=== PATIENT | male | born 1950 | race Caucasian/White ===

== ENCOUNTER → 2018-04-10 16:56 | Outpatient (CLI) | payer MEDICARE, BC, SELFPAY ==
[2018-04-10 17:21] LABS: Add Manual Diff / Slide Review NO; Basophils Percent Auto 0.7 % (0-2); Eosinophils Percent Auto 3.6 % (2-4); Hematocrit 38.7 % (41-53); Hemoglobin 13.2 g/dL (13.5-17.5); Lymphocytes Percent Auto 24.9 % (25-40); Mean Corpuscular HGB Conc 34.1 % (30-36); Mean Corpuscular Hemoglobin 33.3 PG (26-34); Mean Corpuscular Volume 97.7 fL (80-100); Monocytes Percent Auto 8.5 % (3-14); Neutrophils Absolute Auto 4300 /uL (3000-5900); Neutrophils Percent Auto 62.3 % (50-75); Platelet Count 296 X10^3/uL (150-400); Red Blood Cell Count 3.96 X10^6/uL (4.5-5.9); Red Cell Distribution Width 14.6 % (11.6-14.8); White Blood Cell Count 6.9 X10^3/uL (4.5-11.0)
[2018-04-10 18:12] LABS: Alanine Aminotransferase 28 IU/L (21-72); Albumin 4.1 g/dL (3.5-5.0); Albumin Globulin Ratio 1.6 (1.0-2.8); Alkaline Phosphatase 61 U/L (38-126); Aspartate Aminotransferase 26 IU/L (17-59); BUN Creatinine Ratio 21.1 (6-22); Bilirubin Total 0.4 mg/dL (0.2-1.3); Blood Urea Nitrogen 19 mg/dL (9-20); Calcium 8.8 mg/dL (8.4-10.2); Carbon Dioxide 29 mmol/L (22-32); Chloride 104 mmol/L (98-107); Estimated Glomerular Filt Rate > 60.0 mL/min (>60); Globulin 2.5 g/dL (1.7-4.1); Glucose 133 mg/dL (80-110); HEMOLYSIS < 15 (0-50); Potassium 4.1 mmol/L (3.4-5.1); Sodium 144 mmol/L (137-145); Total Protein 6.6 g/dL (6.3-8.2)
[2018-04-10 18:14] LABS: C-Reactive Protein Quant < 0.5 mg/dL (<1.0)
[2018-04-10 18:19] LABS: Erythrocyte Sedimentation Rate 25 MM/HR (0-15)
== END ==
PROVIDERS: Family Provider Internal Medicine Rheumatology; PCP Internal Medicine; Visit Provider Specialist/Technologist Athletic Trainer
DX: M06.4 Inflammatory polyarthropathy (principal)
CPT/HCPCS: 36415; 80053; 85025; 85651; 86140

== ENCOUNTER → 2018-07-29 11:28 | Outpatient (CLI) | payer MEDICARE, BC, SELFPAY ==
[2018-07-29 11:50] LABS: Add Manual Diff / Slide Review NO; Basophils Absolute Auto 100 /uL (0-100); Basophils Percent Auto 0.7 % (0-2); Eosinophils Absolute Auto 400 /uL (0-450); Eosinophils Percent Auto 5.3 % (2-4); Hematocrit 39.6 % (41-53); Hemoglobin 13.6 g/dL (13.5-17.5); Lymphocytes Absolute Auto 1400 /uL (1100-4500); Lymphocytes Percent Auto 19.9 % (25-40); Mean Corpuscular HGB Conc 34.3 % (30-36); Mean Corpuscular Hemoglobin 32.4 PG (26-34); Mean Corpuscular Volume 94.3 fL (80-100); Monocytes Absolute Auto 800 /uL (0-900); Monocytes Percent Auto 10.5 % (3-14); Neutrophils Absolute Auto 4600 /uL (1500-7000); Neutrophils Percent Auto 63.6 % (50-75); Platelet Count 281 X10^3/uL (150-400); Red Cell Distribution Width 14.3 % (11.6-14.8); White Blood Cell Count 7.3 X10^3/uL (4.5-11.0)
[2018-07-29 12:06] LABS: Erythrocyte Sedimentation Rate 34 MM/HR (0-15)
[2018-07-29 12:39] LABS: Alanine Aminotransferase 37 IU/L (21-72); Albumin 4.1 g/dL (3.5-5.0); Albumin Globulin Ratio 1.6 (1.0-2.8); Alkaline Phosphatase 53 U/L (38-126); Aspartate Aminotransferase 30 IU/L (17-59); BUN Creatinine Ratio 21.3 (6-22); Bilirubin Total 0.4 mg/dL (0.2-1.3); Blood Urea Nitrogen 17 mg/dL (9-20); Calcium 8.9 mg/dL (8.4-10.2); Carbon Dioxide 28 mmol/L (22-32); Chloride 103 mmol/L (98-107); Estimated Glomerular Filt Rate > 60.0 mL/min (>60); Globulin 2.5 g/dL (1.7-4.1); Glucose 90 mg/dL (80-110); HEMOLYSIS < 15 (0-50); Potassium 3.9 mmol/L (3.4-5.1); Sodium 139 mmol/L (137-145); Total Protein 6.6 g/dL (6.3-8.2)
[2018-07-29 12:40] LABS: C-Reactive Protein Quant < 0.5 mg/dL (<1.0)
== END ==
PROVIDERS: Family Provider Internal Medicine; PCP Internal Medicine; Visit Provider Specialist/Technologist Athletic Trainer
DX: M06.4 Inflammatory polyarthropathy (principal)
CPT/HCPCS: 36415; 80053; 85025; 85651; 86140

== ENCOUNTER → 2018-08-26 13:47 | Outpatient (CLI) | payer MEDICARE, BC, SELFPAY ==
--- NOTE | 2018-08-26 | DI.ECHO.S_ITS ---
[facility] +---------+ : : [address] : [address] : : : : [id number] : : : : Phone: [phone]+ Echocardiogram Report + + :Name: CHANTELL LONG Study Date: 08/26/2018 Height: 72 in : :[facility] Exam Location: IS Weight: 265 lb : : Gender: Male BSA: 2.4 m2 : :: 1950 Age: 68 yrs BP: 122/60 mmHg: :Reason For Study: Aortic Stenosis : :Ordering Physician: Dr. Barron : :Willie Performed By: Ana Dawson : :Referring: BASIA MENDOSA : + + Interpretation Summary The left ventricle is normal in size. The ejection fraction is estimated to be 70-75%. There is no echo evidence for significant left ventricular outflow tract obstruction. The right ventricle is normal in size and function. There is mild mitral regurgitation. The aortic valve is not well visualized. The aortic valve is mildly calcified. The peak aortic velocity is 2.6 m/sec. The aortic valve mean gradient is 13 mmHg. The calculated aortic valve area is 1.8 cm2. There is mild aortic stenosis. There is mild aortic regurgitation. The ascending aorta is mildly enlarged. The IVC is of normal diameter and collapses greater than 50% with a sniff. This suggests a low right atrial pressure of 3 mm Hg. Procedure: A two-dimensional transthoracic echocardiogram with color flow and Doppler was performed. The study quality was technically adequate. There is no prior echocardiogram noted for this patient. The patient was in normal sinus rhythm during the exam. The patient had a bundle branch block rhythm during the exam. Left Ventricle: The left ventricle is normal in size. There is mild-moderate concentric left ventricular hypertrophy. Proximal septal thickening is noted. There is no echo evidence for significant left ventricular outflow tract obstruction. There is no thrombus. The ejection fraction is estimated to be 70-75%. There are no focal wall motion abnormalities. Diastolic parameters suggest a relaxation abnormality of the left ventricle, consistent with probable normal filling pressures. Right Ventricle: The right ventricle is normal in size and function. Atria: The left atrium is moderately dilated. The right atrium is mildly dilated. The interatrial septum is intact with no evidence for an atrial septal defect. Mitral Valve: There is mild mitral annular calcification. The mitral valve leaflets are slightly calcified. There is mild mitral regurgitation. Aortic Valve: The aortic valve is mildly calcified. The aortic valve is not well visualized. The calculated aortic valve area is 1.8 cm2. The peak aortic velocity is 2.6 m/sec. The aortic valve mean gradient is 13 mmHg. There is mild aortic stenosis. There is mild aortic regurgitation. Tricuspid Valve: The tricuspid valve is not well visualized, but is grossly normal. Pulmonary artery pressures cannot be estimated because of the lack of a measurable TR jet velocity. There is trace tricuspid regurgitation. Pulmonic Valve: The pulmonic valve is not well seen, but is grossly normal. There is trace pulmonic regurgitation. Great Vessels: The aortic root is normal size. The ascending aorta is mildly enlarged. The IVC is of normal diameter and collapses greater than 50% with a sniff. This suggests a low right atrial pressure of 3 mm Hg. Pericardium/ Pleura There is no pericardial effusion. There is an anterior echo-free space consistent with a fat pad. There is no pleural effusion. MMode/2D Measurements & Calculations LVIDd: 4.9 cm LVOT diam: 2.2 cm LVIDs: 2.7 cm Ao root diam: 3.4 cm FS: 45.0 % asc Aorta Diam: 3.6 cm IVSd: 1.2 cm Ao Arch Diam (Prox Trans): 3.1 cm LVPWd: 1.4 cm LV rojas. diameter/BSA (cm/m^2): 2.1 LV sys. diameter/BSA (cm/m^2): 1.1 LA A2 area: 22.3 cm2 RA long axis: 5.1 cm LA A4 area: 20.2 cm2 RA area: 20.2 cm2 LA length (vol): 5.6 cm RA vol: 67.8 ml LA vol: 68.7 ml RA : 28.2 ml/m2 LA vol index: 28.6 ml/m2 TAPSE: 3.0 cm Doppler Measurements & Calculations Ao V2 max: 258.1 cm/sec LVOT Max Davon: 122.3 cm/sec Ao V2 mean: 174.7 cm/sec LV V1 max P.0 mmHg Ao max P.6 mmHg LV V1 VTI: 25.7 cm Ao mean P.4 mmHg GABBY(I,D): 1.8 cm2 Ao V2 VTI: 52.5 cm GABBY(V,D): 1.8 cm2 sev ratio: 0.49 GABBY indexed to BSA (cm^2/m^2): 0.77 MV E max davon: 67.3 cm/sec PA V2 max: 80.9 cm/sec MV A max davon: 77.3 cm/sec PA V2 mean: 52.6 cm/sec MV E/A: 0.87 PA mean P.3 mmHg Med Peak E' Advon: 6.3 cm/sec PA pr(Accel): 19.1 mmHg E/E' med: 10.7 Lat Peak E' Davon: 6.7 cm/sec E/E' lat: 10.0 E/e' average: 10.3 MV dec time: 0.22 sec SV(LVOT): 97.0 ml Reading Physician:[place]
== END ==
PROVIDERS: Family Provider Internal Medicine; PCP Internal Medicine; Visit Provider Internal Medicine
DX: I08.0 Rheumatic disorders of both mitral and aortic valves (principal)
CPT/HCPCS: 93306

== ENCOUNTER → 2018-09-23 08:52 | Outpatient (CLI) | payer MEDICARE, BC, SELFPAY ==
[2018-09-23 09:32] LABS: Blood Urea Nitrogen 16 mg/dL (9-20); Calcium 8.7 mg/dL (8.4-10.2); Carbon Dioxide 31 mmol/L (22-32); Chloride 102 mmol/L (98-107); Cholesterol 214 mg/dL (140-199); Estimated Glomerular Filt Rate > 60.0 mL/min (>60); Glucose 96 mg/dL (80-110); HDL Cholesterol 44 mg/dL (40-60); HEMOLYSIS < 15 (0-50); LDL Cholesterol Calculated 140 mg/dL (<100); Potassium 3.9 mmol/L (3.4-5.1); Sodium 140 mmol/L (137-145); Triglycerides 148 mg/dL (35-150)
== END ==
PROVIDERS: PCP Internal Medicine; Visit Provider Internal Medicine
DX: I10 Essential (primary) hypertension (principal); E66.9 Obesity, unspecified
CPT/HCPCS: 36415; 80048; 80061

== ENCOUNTER → 2018-10-31 11:37 | Outpatient (CLI) | payer MEDICARE, BC, SELFPAY ==
[2018-10-31 12:10] LABS: Add Manual Diff / Slide Review NO; Basophils Absolute Auto 0 /uL (0-100); Basophils Percent Auto 0.5 % (0-2); Eosinophils Absolute Auto 200 /uL (0-450); Eosinophils Percent Auto 3.3 % (2-4); Hematocrit 38.5 % (41-53); Hemoglobin 13.4 g/dL (13.5-17.5); Lymphocytes Absolute Auto 1500 /uL (1100-4500); Lymphocytes Percent Auto 24.4 % (25-40); Mean Corpuscular HGB Conc 34.9 % (30-36); Mean Corpuscular Hemoglobin 33.1 PG (26-34); Mean Corpuscular Volume 94.8 fL (80-100); Monocytes Absolute Auto 500 /uL (0-900); Monocytes Percent Auto 8.6 % (3-14); Neutrophils Absolute Auto 4000 /uL (1500-7000); Neutrophils Percent Auto 63.2 % (50-75); Platelet Count 246 X10^3/uL (150-400); Red Blood Cell Count 4.05 X10^6/uL (4.5-5.9); Red Cell Distribution Width 14.4 % (11.6-14.8); White Blood Cell Count 6.3 X10^3/uL (4.5-11.0)
[2018-10-31 12:25] LABS: Erythrocyte Sedimentation Rate 16 MM/HR (0-15)
[2018-10-31 13:01] LABS: Alanine Aminotransferase 30 IU/L (21-72); Albumin Globulin Ratio 1.7 (1.0-2.8); Alkaline Phosphatase 54 U/L (38-126); Aspartate Aminotransferase 25 IU/L (17-59); BUN Creatinine Ratio 23.8 (6-22); Bilirubin Total 0.3 mg/dL (0.2-1.3); Blood Urea Nitrogen 19 mg/dL (9-20); C-Reactive Protein Quant < 0.5 mg/dL (<1.0); Calcium 8.8 mg/dL (8.4-10.2); Carbon Dioxide 28 mmol/L (22-32); Chloride 103 mmol/L (98-107); Estimated Glomerular Filt Rate > 60.0 mL/min (>60); Globulin 2.3 g/dL (1.7-4.1); Glucose 117 mg/dL (80-110); HEMOLYSIS < 15 (0-50); Potassium 3.8 mmol/L (3.4-5.1); Sodium 139 mmol/L (137-145); Total Protein 6.3 g/dL (6.3-8.2)
== END ==
PROVIDERS: PCP Internal Medicine; Visit Provider Internal Medicine Rheumatology
DX: L40.50 Arthropathic psoriasis, unspecified (principal)
CPT/HCPCS: 36415; 80053; 85025; 85651; 86140

== ENCOUNTER → 2018-11-27 08:23 | Outpatient (CLI) | payer MEDICARE, BC, SELFPAY ==
[2018-11-27 09:11] LABS: Add Manual Diff / Slide Review NO; Basophils Absolute Auto 100 /uL (0-100); Eosinophils Absolute Auto 200 /uL (0-450); Eosinophils Percent Auto 4.7 % (2-4); Hemoglobin 13.1 g/dL (13.5-17.5); Lymphocytes Absolute Auto 1400 /uL (1100-4500); Lymphocytes Percent Auto 26.8 % (25-40); Mean Corpuscular HGB Conc 34.5 % (30-36); Mean Corpuscular Hemoglobin 33.1 PG (26-34); Monocytes Absolute Auto 400 /uL (0-900); Monocytes Percent Auto 7.3 % (3-14); Neutrophils Absolute Auto 3100 /uL (1500-7000); Neutrophils Percent Auto 60.2 % (50-75); Platelet Count 256 X10^3/uL (150-400); Red Blood Cell Count 3.96 X10^6/uL (4.5-5.9); Red Cell Distribution Width 14.6 % (11.6-14.8); White Blood Cell Count 5.2 X10^3/uL (4.5-11.0)
[2018-11-27 09:32] LABS: Erythrocyte Sedimentation Rate 43 MM/HR (0-15)
[2018-11-27 09:37] LABS: Alanine Aminotransferase 25 IU/L (21-72); Albumin 4.1 g/dL (3.5-5.0); Albumin Globulin Ratio 1.5 (1.0-2.8); Alkaline Phosphatase 54 U/L (38-126); Aspartate Aminotransferase 27 IU/L (17-59); Bilirubin Total 0.8 mg/dL (0.2-1.3); Blood Urea Nitrogen 20 mg/dL (9-20); C-Reactive Protein Quant 0.6 mg/dL (<1.0); Calcium 8.6 mg/dL (8.4-10.2); Carbon Dioxide 30 mmol/L (22-32); Chloride 103 mmol/L (98-107); Estimated Glomerular Filt Rate > 60.0 mL/min (>60); Globulin 2.8 g/dL (1.7-4.1); Glucose 96 mg/dL (80-110); HEMOLYSIS < 15 (0-50); Potassium 3.6 mmol/L (3.4-5.1); Sodium 139 mmol/L (137-145); Total Protein 6.9 g/dL (6.3-8.2)
[2018-11-27 10:50] LABS: Hep C Virus Ab w/Reflex Quant NEGATIVE s/c (NEGATIVE)
== END ==
PROVIDERS: PCP Internal Medicine; Visit Provider Internal Medicine Rheumatology
DX: Z00.00 Encounter for general adult medical examination without abnormal findings (principal); L40.50 Arthropathic psoriasis, unspecified
CPT/HCPCS: 36415; 80053; 85025; 85651; 86140; 86803

== ENCOUNTER → 2019-03-05 08:13 | Outpatient (CLI) | payer MEDICARE, BC, SELFPAY ==
[2019-03-05 09:19] LABS: Add Manual Diff / Slide Review NO; Basophils Absolute Auto 0 /uL (0-100); Basophils Percent Auto 0.7 % (0-2); Eosinophils Absolute Auto 300 /uL (0-450); Eosinophils Percent Auto 6.8 % (2-4); Hemoglobin 13.2 g/dL (13.5-17.5); Lymphocytes Absolute Auto 1200 /uL (1100-4500); Lymphocytes Percent Auto 23.9 % (25-40); Mean Corpuscular HGB Conc 34.8 % (30-36); Mean Corpuscular Hemoglobin 33.6 PG (26-34); Mean Corpuscular Volume 96.4 fL (80-100); Monocytes Absolute Auto 300 /uL (0-900); Monocytes Percent Auto 6.3 % (3-14); Neutrophils Absolute Auto 3100 /uL (1500-7000); Neutrophils Percent Auto 62.3 % (50-75); Platelet Count 255 X10^3/uL (150-400); Red Blood Cell Count 3.94 X10^6/uL (4.5-5.9); Red Cell Distribution Width 14.5 % (11.6-14.8)
[2019-03-05 09:50] LABS: Alanine Aminotransferase 30 IU/L (21-72); Albumin Globulin Ratio 1.6 (1.0-2.8); Alkaline Phosphatase 55 U/L (38-126); Aspartate Aminotransferase 32 IU/L (17-59); BUN Creatinine Ratio 23.8 (6-22); Bilirubin Total 0.7 mg/dL (0.2-1.3); Blood Urea Nitrogen 19 mg/dL (9-20); Carbon Dioxide 30 mmol/L (22-32); Chloride 102 mmol/L (98-107); Estimated Glomerular Filt Rate > 60.0 mL/min (>60); Globulin 2.5 g/dL (1.7-4.1); Glucose 92 mg/dL (80-110); HEMOLYSIS < 15 (0-50); Potassium 3.9 mmol/L (3.4-5.1); Sodium 141 mmol/L (137-145); Total Protein 6.5 g/dL (6.3-8.2)
[2019-03-05 10:03] LABS: C-Reactive Protein Quant < 0.5 mg/dL (<1.0)
[2019-03-05 10:04] LABS: Erythrocyte Sedimentation Rate 23 MM/HR (0-15)
== END ==
PROVIDERS: PCP Internal Medicine; Visit Provider Internal Medicine Rheumatology
DX: L40.50 Arthropathic psoriasis, unspecified (principal)
CPT/HCPCS: 36415; 80053; 85025; 85651; 86140

== ENCOUNTER → 2019-06-01 11:30 | Outpatient (CLI) | payer MEDICARE, BC, SELFPAY ==
[2019-06-01 12:27] LABS: Add Manual Diff / Slide Review NO; Basophils Absolute Auto 0 /uL (0-100); Basophils Percent Auto 0.9 % (0-2); Eosinophils Absolute Auto 300 /uL (0-450); Eosinophils Percent Auto 4.7 % (2-4); Hematocrit 37.1 % (41-53); Hemoglobin 12.7 g/dL (13.5-17.5); Lymphocytes Absolute Auto 900 /uL (1100-4500); Lymphocytes Percent Auto 17.1 % (25-40); Mean Corpuscular HGB Conc 34.3 % (30-36); Mean Corpuscular Hemoglobin 33.7 PG (26-34); Mean Corpuscular Volume 98.2 fL (80-100); Monocytes Absolute Auto 700 /uL (0-900); Monocytes Percent Auto 12.5 % (3-14); Neutrophils Absolute Auto 3600 /uL (1500-7000); Neutrophils Percent Auto 64.8 % (50-75); Platelet Count 236 X10^3/uL (150-400); Red Blood Cell Count 3.78 X10^6/uL (4.5-5.9); Red Cell Distribution Width 14.4 % (11.6-14.8); White Blood Cell Count 5.6 X10^3/uL (4.5-11.0)
[2019-06-01 12:34] LABS: Erythrocyte Sedimentation Rate 23 MM/HR (0-15)
[2019-06-01 12:42] LABS: Alanine Aminotransferase 20 IU/L (<50); Albumin 4.1 g/dL (3.5-5.0); Albumin Globulin Ratio 1.8 (1.0-2.8); Alkaline Phosphatase 52 U/L (38-126); Aspartate Aminotransferase 24 IU/L (17-59); Bilirubin Total 0.5 mg/dL (0.2-1.3); Blood Urea Nitrogen 18 mg/dL (9-20); C-Reactive Protein Quant 0.5 mg/dL (<1.0); Calcium 9.2 mg/dL (8.4-10.2); Carbon Dioxide 31 mmol/L (22-32); Chloride 102 mmol/L (98-107); Estimated Glomerular Filt Rate > 60.0 mL/min (>60); Globulin 2.3 g/dL (1.7-4.1); Glucose 116 mg/dL (80-110); HEMOLYSIS < 15 (0-50); Potassium 4.1 mmol/L (3.4-5.1); Sodium 141 mmol/L (137-145); Total Protein 6.4 g/dL (6.3-8.2)
== END ==
PROVIDERS: Family Provider Internal Medicine; PCP Internal Medicine; Visit Provider Internal Medicine Rheumatology
DX: L40.50 Arthropathic psoriasis, unspecified (principal); I10 Essential (primary) hypertension
CPT/HCPCS: 36415; 80053; 85025; 85651; 86140

== ENCOUNTER → 2019-06-16 15:51 | Outpatient (CLI) | payer MEDICARE, BC, SELFPAY ==
--- NOTE | 2019-06-16 | DI.MRI.S_ITS ---
PROCEDURE: MR ANGIO ABDOMEN WO/W CON INDICATIONS: Essential (primary) hypertension TECHNIQUE: Precontrast axial and coronal TruFISP through the abdomen. Dynamic coronal MRA using Care Bolus timing during the administration of contrast. Post-contrast axial VIBE through the kidneys. 3-dimensional maximum intensity projection (MIP) reformats constructed. COMPARISON: None. FINDINGS: Image quality: Excellent. Renal arteries: Single bilateral renal arteries are present, which are widely patent. Abdominal aorta: Aorta is normal in caliber, and is patent. Mesenteric arteries: Celiac trunk, superior and inferior mesenteric arteries are widely patent. Extravascular soft tissues: Visualized solid organs appear normal in size on limited pre-contrast images. No retroperitoneal or mesenteric adenopathy by size criteria. Bowel loops are normal in caliber. No free fluid. No ventral hernias. Bones: Marrow demonstrates normal overall signal. IMPRESSION: 1. No evidence of renal, nor mesenteric artery stenosis. Dictated by: Armando Lee M.D. on 06/17/2019 at 8:37 Approved by: Armando Lee M.D. on 06/17/2019 at 8:39
== END ==
PROVIDERS: PCP Internal Medicine; Visit Provider Internal Medicine
DX: I70.1 Atherosclerosis of renal artery (principal); I10 Essential (primary) hypertension
CPT/HCPCS: C8902; A9579

== ENCOUNTER → 2019-09-11 17:26 | Outpatient (CLI) | payer MEDICARE, BC, SELFPAY ==
[2019-09-11 19:07] LABS: BUN Creatinine Ratio 27.1 (6-22); Blood Urea Nitrogen 32 mg/dL (9-20); Carbon Dioxide 31 mmol/L (22-32); Chloride 101 mmol/L (98-107); Estimated Glomerular Filt Rate > 60.0 mL/min (>60); Glucose 111 mg/dL (80-110); HEMOLYSIS 17 (0-50); Potassium 3.8 mmol/L (3.4-5.1); Sodium 138 mmol/L (137-145)
[2019-09-16 09:00] LABS: Aldosterone/Renin Activity Rat >22.2 (0.0-30.0); Plama Renin, LC/MS/MS <0.167 ng/mL/hr (0.167-5.380)
== END ==
PROVIDERS: PCP Internal Medicine; Referring Provider Internal Medicine; Visit Provider Internal Medicine
DX: I10 Essential (primary) hypertension (principal)
CPT/HCPCS: 36415; 80048; 82088; 84244

== ENCOUNTER → 2019-10-08 10:24 | Outpatient (CLI) | payer MEDICARE, BC, SELFPAY ==
[2019-10-08 11:27] LABS: BUN Creatinine Ratio 24.6 (6-22); Blood Urea Nitrogen 35 mg/dL (9-20); Calcium 9.1 mg/dL (8.4-10.2); Carbon Dioxide 28 mmol/L (22-32); Chloride 102 mmol/L (98-107); Estimated Glomerular Filt Rate 49.6 mL/min (>60); Glucose 106 mg/dL (80-110); HEMOLYSIS < 15 (0-50); Potassium 3.5 mmol/L (3.4-5.1); Sodium 139 mmol/L (137-145)
== END ==
PROVIDERS: PCP Internal Medicine; Referring Provider Internal Medicine; Visit Provider Internal Medicine
DX: I10 Essential (primary) hypertension (principal)
CPT/HCPCS: 36415; 80048

== ENCOUNTER → 2019-11-04 16:10 | Outpatient (CLI) | payer MEDICARE, BC, SELFPAY ==
[2019-11-04 17:16] LABS: BUN Creatinine Ratio 24.5 (6-22); Blood Urea Nitrogen 36 mg/dL (9-20); Calcium 8.9 mg/dL (8.4-10.2); Carbon Dioxide 29 mmol/L (22-32); Chloride 99 mmol/L (98-107); Estimated Glomerular Filt Rate 47.6 mL/min (>60); Glucose 96 mg/dL (80-110); HEMOLYSIS < 15 (0-50); Potassium 3.4 mmol/L (3.4-5.1); Sodium 137 mmol/L (137-145)
== END ==
PROVIDERS: PCP Internal Medicine; Referring Provider Internal Medicine; Visit Provider Internal Medicine
DX: I10 Essential (primary) hypertension (principal)
CPT/HCPCS: 36415; 80048

== ENCOUNTER → 2019-11-16 09:22 | Outpatient (CLI) | payer MEDICARE, BC, SELFPAY ==
[2019-11-16 11:14] LABS: Alanine Aminotransferase 18 IU/L (<50); Albumin 4.1 g/dL (3.5-5.0); Albumin Globulin Ratio 1.4 (1.0-2.8); Alkaline Phosphatase 49 U/L (38-126); Aspartate Aminotransferase 29 IU/L (17-59); BUN Creatinine Ratio 20.1 (6-22); Bilirubin Total 0.4 mg/dL (0.2-1.3); Blood Urea Nitrogen 29 mg/dL (9-20); Calcium 9.5 mg/dL (8.4-10.2); Carbon Dioxide 29 mmol/L (22-32); Chloride 102 mmol/L (98-107); Estimated Glomerular Filt Rate 48.8 mL/min (>60); Globulin 2.9 g/dL (1.7-4.1); Glucose 120 mg/dL (80-110); HEMOLYSIS < 15 (0-50); Potassium 3.4 mmol/L (3.4-5.1); Sodium 140 mmol/L (137-145)
[2019-11-16 11:15] LABS: C-Reactive Protein Quant < 0.5 mg/dL (<1.0)
[2019-11-16 11:51] LABS: Erythrocyte Sedimentation Rate 45 MM/HR (0-15)
== END ==
PROVIDERS: PCP Internal Medicine; Referring Provider Internal Medicine Rheumatology; Visit Provider Internal Medicine Rheumatology
DX: L40.50 Arthropathic psoriasis, unspecified (principal)
CPT/HCPCS: 36415; 80053; 85651; 86140

== ENCOUNTER → 2019-11-24 10:52 | Outpatient (CLI) | payer MEDICARE, BC, SELFPAY ==
[2019-11-24 12:13] LABS: Add Manual Diff / Slide Review NO; Basophils Absolute Auto 0 /uL (0-100); Basophils Percent Auto 0.6 % (0-2); Eosinophils Absolute Auto 400 /uL (0-450); Eosinophils Percent Auto 7.1 % (2-4); Hematocrit 31.4 % (41-53); Hemoglobin 11.1 g/dL (13.5-17.5); Lymphocytes Absolute Auto 1000 /uL (1100-4500); Lymphocytes Percent Auto 16.4 % (25-40); Mean Corpuscular HGB Conc 35.3 % (30-36); Mean Corpuscular Hemoglobin 34.4 PG (26-34); Mean Corpuscular Volume 97.4 fL (80-100); Monocytes Absolute Auto 600 /uL (0-900); Monocytes Percent Auto 9.8 % (3-14); Neutrophils Absolute Auto 4000 /uL (1500-7000); Neutrophils Percent Auto 66.1 % (50-75); Platelet Count 211 X10^3/uL (150-400); Red Blood Cell Count 3.22 X10^6/uL (4.5-5.9); Red Cell Distribution Width 14.6 % (11.6-14.8)
== END ==
PROVIDERS: PCP Internal Medicine; Referring Provider Internal Medicine Rheumatology; Visit Provider Internal Medicine Rheumatology
DX: L40.50 Arthropathic psoriasis, unspecified (principal)
CPT/HCPCS: 36415; 85025

== ENCOUNTER → 2019-12-02 10:38 | Outpatient (CLI) | payer MEDICARE, BC, SELFPAY ==
[2019-12-02 13:22] LABS: Ferritin 131 ng/mL (18-464)
[2019-12-02 13:26] LABS: HEMOLYSIS < 15 (0-50); Iron 152 ug/dL (49-181)
[2019-12-02 13:38] LABS: Percent Iron Saturation 58 % (20-50); Total Iron Binding Capacity 260 ug/dL (261-462); Transferrin 187 mg/dL (206-381)
== END ==
PROVIDERS: PCP Internal Medicine; Referring Provider Internal Medicine; Visit Provider Internal Medicine
DX: D64.9 Anemia, unspecified (principal)
CPT/HCPCS: 36415; 82728; 83540; 83550

== ENCOUNTER → 2019-12-08 17:32 | Outpatient (CLI) | payer MEDICARE, BC, SELFPAY ==
[2019-12-08 18:12] LABS: BUN Creatinine Ratio 25.3 (6-22); Blood Urea Nitrogen 41 mg/dL (9-20); Carbon Dioxide 28 mmol/L (22-32); Chloride 102 mmol/L (98-107); Estimated Glomerular Filt Rate 42.6 mL/min (>60); Glucose 162 mg/dL (80-110); HEMOLYSIS < 15 (0-50); Potassium 3.9 mmol/L (3.4-5.1); Sodium 138 mmol/L (137-145)
== END ==
PROVIDERS: PCP Internal Medicine; Referring Provider Internal Medicine; Visit Provider Internal Medicine
DX: I10 Essential (primary) hypertension (principal)
CPT/HCPCS: 36415; 80048

== ENCOUNTER → 2019-12-10 16:00 | Outpatient (CLI) | payer MEDICARE, BC, SELFPAY ==
[2019-12-10 16:22] LABS: Add Manual Diff / Slide Review NO; Basophils Absolute Auto 100 /uL (0-100); Basophils Percent Auto 0.8 % (0-2); Eosinophils Absolute Auto 400 /uL (0-450); Eosinophils Percent Auto 6.2 % (2-4); Hematocrit 30.3 % (41-53); Hemoglobin 10.8 g/dL (13.5-17.5); Lymphocytes Absolute Auto 1500 /uL (1100-4500); Lymphocytes Percent Auto 25.1 % (25-40); Mean Corpuscular HGB Conc 35.5 % (30-36); Mean Corpuscular Hemoglobin 34.7 PG (26-34); Mean Corpuscular Volume 97.7 fL (80-100); Monocytes Absolute Auto 300 /uL (0-900); Monocytes Percent Auto 5.3 % (3-14); Neutrophils Absolute Auto 3800 /uL (1500-7000); Neutrophils Percent Auto 62.6 % (50-75); Platelet Count 257 X10^3/uL (150-400); Red Cell Distribution Width 14.5 % (11.6-14.8)
[2019-12-10 18:12] LABS: Creatinine Urine Random 94.5 mg/dL
[2019-12-10 18:24] LABS: Microalbumi Creatinin Ratio Ur 6.3 ug/mg CR (<30); Microalbumin Urine Random < 0.6 mg/dL (0-1.6)
== END ==
PROVIDERS: PCP Internal Medicine; Referring Provider Internal Medicine; Visit Provider Internal Medicine
DX: N18.9 Chronic kidney disease, unspecified (principal); D64.9 Anemia, unspecified
CPT/HCPCS: 36415; 82043; 82570; 85025

== ENCOUNTER → 2020-01-04 15:23 | Outpatient (CLI) | payer MEDICARE, BC, SELFPAY ==
[2020-01-04 16:18] LABS: Add Manual Diff / Slide Review NO; Basophils Absolute Auto 100 /uL (0-100); Basophils Percent Auto 0.7 % (0-2); Eosinophils Absolute Auto 400 /uL (0-450); Eosinophils Percent Auto 4.9 % (2-4); Hematocrit 30.3 % (41-53); Hemoglobin 10.5 g/dL (13.5-17.5); Lymphocytes Absolute Auto 1100 /uL (1100-4500); Lymphocytes Percent Auto 14.5 % (25-40); Mean Corpuscular HGB Conc 34.9 % (30-36); Mean Corpuscular Hemoglobin 34.9 PG (26-34); Mean Corpuscular Volume 100.3 fL (80-100); Monocytes Absolute Auto 1100 /uL (0-900); Monocytes Percent Auto 13.8 % (3-14); Neutrophils Absolute Auto 5100 /uL (1500-7000); Neutrophils Percent Auto 66.1 % (50-75); Platelet Count 230 X10^3/uL (150-400); Red Blood Cell Count 3.02 X10^6/uL (4.5-5.9); Red Cell Distribution Width 14.9 % (11.6-14.8); White Blood Cell Count 7.8 X10^3/uL (4.5-11.0)
[2020-01-04 16:30] LABS: BUN Creatinine Ratio 19.4 (6-22); Blood Urea Nitrogen 21 mg/dL (9-20); Calcium 8.9 mg/dL (8.4-10.2); Carbon Dioxide 30 mmol/L (22-32); Chloride 104 mmol/L (98-107); Estimated Glomerular Filt Rate > 60.0 mL/min (>60); Glucose 106 mg/dL (80-110); HEMOLYSIS < 15 (0-50); Potassium 3.7 mmol/L (3.4-5.1); Sodium 138 mmol/L (137-145)
== END ==
PROVIDERS: PCP Internal Medicine; Referring Provider Internal Medicine; Visit Provider Internal Medicine
DX: I10 Essential (primary) hypertension (principal); N18.9 Chronic kidney disease, unspecified; D64.9 Anemia, unspecified
CPT/HCPCS: 36415; 80048; 85025

== ENCOUNTER → 2020-01-05 10:35 | Outpatient (CLI) | payer MEDICARE, BC, SELFPAY ==
--- NOTE | 2020-01-05 | DI.US.S_ITS ---
PROCEDURE: US RENAL COMPLETE INDICATIONS: ACUTE KIDNEY FAILURE TECHNIQUE: Real-time scanning was performed of the kidneys and bladder, with image documentation. COMPARISON: [facility], MR, MR ANGIO ABDOMEN WO/W CON, 06/16/2019, 16:28. FINDINGS: Kidneys: Kidneys are normal in size. Right kidney measures 13.2 cm long; left kidney measures 14 cm long. Right renal cortical thickness is 2.1 cm; left renal cortical thickness is 1.4 cm. Renal cortical echotexture is normal. No hydronephrosis or nephrolithiasis. No suspicious solid mass lesions. Multiple renal cysts present bilaterally. Bladder: Pre-void bladder volume is 221 mL. Post-void residual is 8 mL. Pre-void images demonstrate no intraluminal masses or stones. On pre-void images, bilateral ureteral jets are noted with color Doppler interrogation. (Of note, ureteral jets may not be detectable in up to 25% of cases due to insufficient differences in specific gravity between ureteral and bladder urine). Miscellaneous: No free pelvic fluid. IMPRESSION: 1. Bilateral renal cysts; otherwise normal appearance the kidneys. Dictated by: Jose Mckenzie [facility] Interpreted: Brandon Sow MD on 01/05/2020 at 11:37 Approved by: Brandon Sow M.D. on 01/05/2020 at 12:45
== END ==
PROVIDERS: PCP Internal Medicine; Referring Provider Student in an Organized Health Care Education/Training Program; Visit Provider Student in an Organized Health Care Education/Training Program
DX: N17.9 Acute kidney failure, unspecified (principal); N28.1 Cyst of kidney, acquired
CPT/HCPCS: 76770

== ENCOUNTER → 2020-02-09 10:14 | Outpatient (CLI) | payer MEDICARE, BC, SELFPAY ==
[2020-02-09 10:36] LABS: RBC Urine None Seen (0-5/HPF)
[2020-02-09 12:01] LABS: Hematocrit 34.5 % (41-53); Mean Corpuscular HGB Conc 34.7 % (30-36); Mean Corpuscular Hemoglobin 34.2 PG (26-34); Mean Corpuscular Volume 98.5 fL (80-100); Platelet Count 238 X10^3/uL (150-400); Red Blood Cell Count 3.51 X10^6/uL (4.5-5.9); White Blood Cell Count 6.4 X10^3/uL (4.5-11.0)
[2020-02-09 12:45] LABS: Blood Urea Nitrogen 18 mg/dL (9-20); Calcium 9.1 mg/dL (8.4-10.2); Carbon Dioxide 28 mmol/L (22-32); Chloride 104 mmol/L (98-107); Estimated Glomerular Filt Rate > 60.0 mL/min (>60); Glucose 115 mg/dL (80-110); HEMOLYSIS < 15 (0-50); Potassium 3.8 mmol/L (3.4-5.1); Sodium 139 mmol/L (137-145)
[2020-02-09 13:39] LABS: Appearance Urine UA CLEAR; Bilirubin Urine UA NEGATIVE (NEGATIVE); Color Urine UA YELLOW; Glucose Urine UA NEGATIVE (Negative); Ketones Urine UA NEGATIVE (NEGATIVE); Leukocyte Esterase Urine UA NEGATIVE (NEGATIVE); Nitrite Urine UA NEGATIVE (Negative); Occult Blood Urine UA NEGATIVE (Negative); Protein Urine UA NEGATIVE (Negative); Specific Gravity Urine UA 1.015 (1.000-1.035); Urobilinogen Urine UA 0.2 E.U./dL (0.2)
[2020-02-09 14:25] LABS: Bacteria Urine Occasional (0-1); Culture Indicated Urine Cult Not Indicated; Mucus Urine 1+ (Negative); Squamous Epithelial Cell Urine 0-1 /HPF (0-5/HPF); WBC Urine 0-1/HPF (0-5/HPF)
[2020-02-09 15:21] LABS: Protein (Total) Urine Random 13 mg/dL (0-12); Protein Creatinine Ratio Urine 0.06 GRAM/24H
[2020-02-10 07:12] LABS: Parathyroid Hormone Int 43 pg/mL (15-65)
== END ==
PROVIDERS: PCP Internal Medicine; Referring Provider Internal Medicine; Visit Provider Internal Medicine
DX: N05.9 Unspecified nephritic syndrome with unspecified morphologic changes (principal); D70.9 Neutropenia, unspecified; D63.1 Anemia in chronic kidney disease; N25.81 Secondary hyperparathyroidism of renal origin; N30.00 Acute cystitis without hematuria; R80.9 Proteinuria, unspecified
CPT/HCPCS: 36415; 80048; 81001; 82570; 83970; 84156; 85027

== ENCOUNTER → 2020-06-28 13:18 | Outpatient (CLI) | payer MEDICARE, BC, SELFPAY ==
[2020-06-28 14:25] LABS: Add Manual Diff / Slide Review NO; Basophils Absolute Auto 100 /uL (0-100); Basophils Percent Auto 0.8 % (0-2); Eosinophils Absolute Auto 300 /uL (0-450); Eosinophils Percent Auto 4.9 % (2-4); Hematocrit 37.7 % (41-53); Hemoglobin 12.6 g/dL (13.5-17.5); Lymphocytes Absolute Auto 1100 /uL (1100-4500); Mean Corpuscular HGB Conc 33.5 % (30-36); Mean Corpuscular Hemoglobin 33.1 PG (26-34); Mean Corpuscular Volume 98.7 fL (80-100); Monocytes Absolute Auto 600 /uL (0-900); Monocytes Percent Auto 9.3 % (3-14); Neutrophils Absolute Auto 4200 /uL (1500-7000); Platelet Count 261 X10^3/uL (150-400); Red Blood Cell Count 3.83 X10^6/uL (4.5-5.9); Red Cell Distribution Width 14.5 % (11.6-14.8); White Blood Cell Count 6.2 X10^3/uL (4.5-11.0)
[2020-06-28 14:29] LABS: Add Manual Diff / Slide Review NO; Basophils Percent Auto 0.8 % (0-2); Eosinophils Percent Auto 4.9 % (2-4); Hematocrit 37.7 % (41-53); Hemoglobin 12.6 g/dL (13.5-17.5); Mean Corpuscular HGB Conc 33.5 % (30-36); Mean Corpuscular Hemoglobin 33.1 PG (26-34); Mean Corpuscular Volume 98.7 fL (80-100); Monocytes Percent Auto 9.3 % (3-14); Platelet Count 261 X10^3/uL (150-400); Red Blood Cell Count 3.83 X10^6/uL (4.5-5.9); Red Cell Distribution Width 14.5 % (11.6-14.8); White Blood Cell Count 6.2 X10^3/uL (4.5-11.0)
[2020-06-28 14:30] LABS: Basophils Absolute Auto 100 /uL (0-100); Eosinophils Absolute Auto 300 /uL (0-450); Lymphocytes Absolute Auto 1100 /uL (1100-4500); Monocytes Absolute Auto 600 /uL (0-900); Neutrophils Absolute Auto 4200 /uL (1500-7000)
[2020-06-28 14:43] LABS: Erythrocyte Sedimentation Rate 29 MM/HR (0-15)
[2020-06-28 15:00] LABS: Hemoglobin A1C% w Est Avg Glu 5.1 % (4.0-6.0)
[2020-06-28 15:02] LABS: Alanine Aminotransferase 20 IU/L (<50); Albumin Globulin Ratio 1.5 (1.0-2.8); Alkaline Phosphatase 51 U/L (38-126); Aspartate Aminotransferase 27 IU/L (17-59); BUN Creatinine Ratio 24.1 (6-22); Bilirubin Total 0.4 mg/dL (0.2-1.3); Blood Urea Nitrogen 27 mg/dL (9-20); Calcium 9.2 mg/dL (8.4-10.2); Carbon Dioxide 30 mmol/L (22-32); Chloride 103 mmol/L (98-107); Estimated Glomerular Filt Rate > 60.0 mL/min (>60); Globulin 2.7 g/dL (1.7-4.1); Glucose 119 mg/dL (80-110); HEMOLYSIS < 15 (0-50); Sodium 138 mmol/L (137-145); Total Protein 6.7 g/dL (6.3-8.2)
[2020-06-28 15:10] LABS: C-Reactive Protein Quant < 0.5 mg/dL (<1.0)
== END ==
PROVIDERS: Internal Medicine Rheumatology; PCP Internal Medicine; Referring Provider Orthopaedic Surgery Adult Reconstructive Orthopaedic Surgery; Visit Provider Orthopaedic Surgery Adult Reconstructive Orthopaedic Surgery
DX: Z01.818 Encounter for other preprocedural examination (principal); R73.9 Hyperglycemia, unspecified; N18.9 Chronic kidney disease, unspecified; Z01.812 Encounter for preprocedural laboratory examination
CPT/HCPCS: 36415; 80053; 83036; 84153; 85025; 85651; 86140; 93005

== ENCOUNTER → 2020-08-15 11:33 | Outpatient (CLI) | payer MEDICARE, BC, SELFPAY ==
[2020-08-15 13:15] LABS: COVID19 -Nasal RAPID Negative (Negative)
== END ==
PROVIDERS: PCP Internal Medicine; Visit Provider Nurse Practitioner
DX: Z20.822 Contact with and (suspected) exposure to COVID-19 (principal); Z01.812 Encounter for preprocedural laboratory examination
CPT/HCPCS: 87635; C9803

== ENCOUNTER 2020-08-17 10:24 | Day surgery (SDC) | payer MEDICARE, BC, SELFPAY ==
[2020-08-17] VITALS (13 sets, daily range): BP systolic 124–145; BP diastolic 63–81; PULSE 60–89; RESP 12–18; TEMP 36.4–36.9; O2SAT 93–98; BMI 33.9
--- NOTE | 2020-08-17 06:00 | DI.RAD.S_ITS ---
PROCEDURE: XR KNEE LT 1TO2V INDICATIONS: TKA TECHNIQUE: 2 views of the knee were acquired. COMPARISON: [facility], [place], XR KNEE 4+ VIEWS LEFT, 06/21/2020, 14:40. FINDINGS: Bones: No fractures or dislocations. No suspicious bony lesions. Stable appearance of knee arthroplasty. Hardware is intact without evidence of periprosthetic loosening or hardware fracture. Soft tissues: No joint effusion. No suspicious soft tissue calcifications. IMPRESSION: Stable appearance of knee arthroplasty. Dictated by: Dolores Julio M.D. on 08/17/2020 at 16:04 Approved by: Dolores Julio M.D. on 08/17/2020 at 16:05
[2020-08-17] MEDS: ACETAMINOPHEN 325 MG TABLET 975 MG PO (10:50)
[2020-08-17] MEDS: PREGABALIN 75 MG CAPSULE PO (10:50)
[2020-08-17] MEDS: CELECOXIB 200 MG CAPSULE PO (10:51)
[2020-08-17] MEDS: LACTATED RINGERS 1,000 ML 42 ML IV (10:57)
--- NOTE | 2020-08-17 11:19 | PM.PREOP ---
Pre-operative Note COVID-19 COVID-19 status: Negative Result date/Date tested (Pos, Neg/Pending): 08/15/20 Interval Note History & Physical reviewed/Exam performed by Physician: Yes Changes to H&P: Yes H&P completed within 30 days and has changed as indicated here:: H&P incorrectly states that he is therefore a right total knee arthroplasty this is incorrect. Patient is status post right total knee arthroplasty. He is here for a left total knee arthroplasty he has been booked for left total knee arthroplasty the H&P states it incorrectly. Plan for left total knee arthroplasty.
[2020-08-17] MEDS: CEFAZOLIN 2 GM/100 ML FROZ.PIGGY IV ×2 (11:25→20:37)
--- NOTE | 2020-08-17 12:00 | SUR.OPER ---
Supine on padded OR bed. Pillow under head, arms secured on padded armboards <90 degree abduction. Safety belt across torso. Non-operative leg secured with tape over blanket over lower leg. Hip process controls technician and Dr. Solorzano's knee positioner on operative side. Operative leg under control of surgeon.
[2020-08-17] MEDS: TRANEXAMIC ACID 1,000 MG VIAL 2000 MG INJ ×2 (12:11→13:14)
[2020-08-17] MEDS: KETOROLAC 30 MG/ML VIAL IV (12:12)
[2020-08-17] MEDS: ROPIVACAINE 0.5% PF 5 MG/ML 20ML VIAL 60 ML INJ (12:13)
[2020-08-17] MEDS: MORPHINE 4 MG/ML INJ INJ (12:13)
[2020-08-17] MEDS: SODIUM CHLORIDE IRRIG SOLUTION 250 ML, POVIDONE-IODINE SPONGE STICKS 1 APPLIC IRR (12:14)
--- NOTE | 2020-08-17 13:44 | PM.OP.1 ---
Operative Date/Time/Diagnoses Date of procedure: 08/17/20 Time of procedure: 13:44 Pre-op diagnosis: left knee OA Post-op diagnosis: same Procedure & Clinicians Procedure: Left TKA Same procedure as scheduled: Yes Indications: Left knee osteoarthritis resistant to further conservative measures Surgeon: Danilo Solorzano Billing Collections Specialist: Bebeto Newsome Anesthesia Type: General and Spinal Operative Notes Findings: Left knee osteoarthritis with varus malalignment. Closure Type: primary Prosthetic devices, grafts, tissues, transplants, or devices: Jhaveri and nephew size 6 left CR femoral component Size 6 left Journey tibial base plate Size 5-6 left 9 mm thick deep dish polyethylene 35 mm oval Vickie 2 patellar button Estimated Blood Loss (mL): 100 Tourniquet time (min): 60 Procedure in detail: Patient was met in the preoperative holding area where the site and side of surgery were marked by . Informed consent had been reviewed and signed in clinic however was also reviewed the preoperative holding area and all last minute questions were answered. Patient was brought then brought back in the operating room where he received a spinal anesthetic. He was induced under general anesthesia the left thigh had a nonsterile tourniquet placed and the left lower extremity then prepped and draped in normal sterile fashion. Surgical time-out was performed verifying site and side of surgery as well as the name of the patient. The left lower extremity was exsanguinated using Esmarch and the tourniquet was inflated 250 mm of mercury. A longitudinal incision over the anterior aspect of the knee was made with a 10. Blade. A new 10. Blade was then used to elevate medial lateral flaps. Medial parapatellar arthrotomy was then marked and performed. Hoffa's fat pad was removed and a medial peel was then performed. The ACL remnant was then removed Pascoag's line was marked and the lateral meniscus was also removed. Our starting point for our intramedullary guide was also marked on the femur and tibia. The drill was then used into the femoral canal and tibial canal respectively. The intramedullary guide for the femur was placed and pinned in the neutral slot after the initial cut 2 more mm of distal femur were then taken. We then turned our attention to the tibial side intramedullary tess was placed inside the tibia and a cut was made just deep enough to get underneath the sclerotic bone on the medial plateau. The jig was pinned in place and verified with a drop tess. Bony fragments were then removed and the medial meniscus was also removed. At this point the knee was brought into full extension and a 9 mm block fit in the extension gap and brought the knee out to full extension. There is no varus valgus laxity. Knee was then brought back into flexion gap physician obstetrician was used and compared to Philipp line something seemed off about the mendoza for the gap physician obstetrician so the traditional Sizer was used and compared to Whitesides line and was marked at about 4?. This was then marked and was noted that our flexion gap would be tight. The block was then anteriorized 2 mm. Femur was sized to a size 7 however due to anterior rising we dropped down to a size 6 5 in 1 block. This was pinned in place and all the cuts were then sequentially made. Trial components were then placed and the knee was brought through range of motion. Patient was able to achieve full extension with good varus valgus stability and had good stability range of motion through mid flexion flexion range of motion. Tibial tray external rotation was marked using a floating technique. The patella was then freehand cut and sized to size 35 mm button. This was then drilled for and a 35 mm patellar button was then placed and the knee was brought through range of motion there is no patellar tilt or lift-off. Trial components were then removed from the knee. The tibial tray was then placed in marked external rotation as compared to our marked lines. This was then drilled and the keel punch was then performed. Take your anesthetic injection was then performed. Pulse lavage was then used to thoroughly irrigate all cut surfaces of the bone. The bone was then dried. Cement was then finger packed into the keel hole as well as on the tibial cut surface. Some was also placed on the undersurface of the tibial base plate. This was then malleted into place and all excess cement was removed. Cement was then finger packed onto the cut surface of the femur with exception of the posterior condyle cut. Cement was placed on the feet of the femoral component this was then malleted into place and illicit excess cement was removed. A 9 mm thick trial was then placed the knee was brought into full extension the ankle held in internal rotation. Betadine solution was then placed in the wound allowed to sit for several minutes prior to being lavage with copious normal saline. Tourniquet was let down and hemostasis was achieved using electrocautery. Once the cement was fully cured the knee was brought into flexion excess cement was removed. The knee was trialed through range of motion again and a 9 mm thick polyethylene was selected the final polyethylene was placed and verified the medial and lateral tabs were well seated. The medial parapatellar arthrotomy was then closed using 1. Vicryl interrupted fashion followed by running Quill suture followed by 2 Vicryl in the subcutaneous layer 5 followed by a running 3-0 Stratafix in a subcuticular layer followed by Dermabond on the skin an Aquacel dressing. Complications: none Post-operative Condition: stable Disposition: PACU Plan for aftercare: WBAT LLE, 24 hours post-op abx, ASA 81mg BID for 6 weeks for DVT prophylaxis
[2020-08-17] MEDS: LACTATED RINGERS 1,000 ML 100 ML IV (15:00)
[2020-08-17] MEDS: ACETAMINOPHEN 325 MG TABLET 650 MG PO ×2 (15:02→20:37)
[2020-08-17] MEDS: methocarbamoL 500 MG TABLET 750 MG PO ×2 (15:02→20:36)
[2020-08-17] MEDS: IBUPROFEN 400 MG TABLET PO ×2 (17:06→20:36)
[2020-08-17] MEDS: carvediloL 12.5 MG TABLET 37.5 MG PO (20:36)
[2020-08-17] MEDS: ASPIRIN EC 81 MG TABLET PO (20:37)
[2020-08-17] MEDS: diphenhydrAMINE 25 MG TABLET PO (20:37)
[2020-08-17] MEDS: DOCUSATE 100 MG CAPSULE PO (20:37)
[2020-08-18] MEDS: IBUPROFEN 400 MG TABLET PO ×4 (01:01→13:16)
[2020-08-18] MEDS: LACTATED RINGERS 1,000 ML 100 ML IV (02:17)
[2020-08-18 03:23] VITALS: BP 141/83; PULSE 75; RESP 18; TEMP 36.2; O2SAT 95
[2020-08-18] MEDS: CEFAZOLIN 2 GM/100 ML FROZ.PIGGY IV (04:02)
[2020-08-18] MEDS: OXYCODONE/ACETAMINOPHEN 5/325 TABLET 1 TAB PO (04:02)
[2020-08-18 05:37] LABS: Hematocrit 30.5 % (41-53); Hemoglobin 10.5 g/dL (13.5-17.5)
--- NOTE | 2020-08-18 07:24 | PC.NURSE ---
Intermittent hiccups, tanisha DC'd @ [id number] cath. intact.
[2020-08-18 07:55] VITALS: BP 148/78; PULSE 65; RESP 18; TEMP 37.1; O2SAT 97
[2020-08-18] MEDS: ASPIRIN EC 81 MG TABLET PO (09:07)
[2020-08-18] MEDS: ACETAMINOPHEN 325 MG TABLET 650 MG PO (09:07)
[2020-08-18] MEDS: FLUoxetine 20 MG CAPSULE PO (09:07)
[2020-08-18 09:08] VITALS: BP 145/71; PULSE 68
[2020-08-18] MEDS: EZETIMIBE 10 MG TABLET PO (09:08)
[2020-08-18] MEDS: carvediloL 12.5 MG TABLET 37.5 MG PO (09:08)
[2020-08-18] MEDS: FLUTICASONE 120 SPRAY/16 GM SPRAY.SUSP NASAL (09:09)
[2020-08-18] MEDS: methocarbamoL 500 MG TABLET 750 MG PO (09:09)
[2020-08-18] MEDS: NIFEdipine 30 MG TAB ER 60 MG PO (09:09)
--- NOTE | 2020-08-18 09:41 | PM.DS.1 ---
History of Present Illness History of Present Illness Date Patient Seen: 08/18/20 Time Patient Seen: 09:42 Chief complaint: LEFT TKA *OPB* Narrative: Patient is a 70-year-old male with longstanding history of left knee pain. He was admitted yesterday for elective left total knee arthroplasty for treatment of osteoarthritis. Discharge Providers Provider Discharge Date: 08/18/20 Primary care physician: Anderson Tapia MD Consults: 08/10/20 16:32 Consult to Respiratory Therapy Evaluate & Treat Comment: Sleep Apnea w/oral appliance Physician Instructions: Evaluate and treat 08/17/20 06:00 Consult to Anesthesiology Routine Comment: Consulting Provider: Anesthesiologist Reason for consultation: Regional block for post operative pain control 08/17/20 14:39 Consult to Discharge Planning Routine Comment: Consult to Physical Therapy Evaluate & Treat Comment: Physician Instructions: postop TKA protocol Consult to Respiratory Therapy Evaluate & Treat Comment: Physician Instructions: Evaluate and treat Discharge provider: Danilo Solorzano MD Summary Hospital Course Discharge Diagnosis: Status post left total knee arthroplasty Hospital Course: Patient was admitted yesterday for an elective left total knee arthroplasty. He is now postop day 1. Overall he is doing well. His pain is well controlled. He is working with physical therapy. Status at Discharge Cognitive/behavioral status at discharge: oriented Overall status at discharge: patient is progressing back to baseline Time Spent with Patient Time spent: Less than 30 minutes Exam Vital Signs (past 8 hours): - 08/18/20 03:23 08/18/20 07:55 08/18/20 09:08 Temperature 97.1 F L 98.7 F Pulse Rate 75 65 68 Respiratory Rate 18 18 Blood Pressure 141/83 H 148/78 H 145/71 H Pulse Oximetry 95 97 Oxygen Delivery Method Room Air Oxygen Flow Rate 0 Objective Labs Result Diagrams: 08/18/20 05:00 Labs: Laboratory Results - last 24 hr 08/18/20 05:00 Hgb 10.5 L Hct 30.5 L PFSH Medical History (Updated 08/10/20 @ 16:32 by Laurita Bonilla RN) Arthritis Depression Fracture Hypertension Obesity Primary osteoarthritis of left knee Psoriasis RBBB Sleep apnea Surgical History (Updated 08/10/20 @ 16:01 by Laurita Bonilla RN) H/O hernia repair History of total knee arthroplasty Social History household members: spouse Smoking Status: Never smoker alcohol intake: current Discharge Plan Discharge Plan Patient Disposition: Home Provider Discharge Comment: DC home when cleared by PT Discharge orders & Medications Discharge Orders: Discharge (Order); Ordered 08/18/20 Ordered By: Danilo Solorzano Prescriptions: New aspirin 81 mg Tablet,Delayed Release (Dr/Ec) 81 mg PO BID Qty: 84 RF: 0 Continued multivitamin Tablet 1 tab PO DAILY RF: 0 celecoxib 200 mg Capsule 200 mg PO BID RF: 0 carvedilol 25 mg Tablet 37.5 mg PO BID RF: 0 methocarbamol 750 mg Tablet 750 mg PO TID RF: 0 diphenhydramine HCl [Benadryl] 25 mg Capsule 25 mg PO BEDTIME RF: 0 nifedipine 60 mg Tablet Extended Release 60 mg PO DAILY RF: 0 fluticasone propionate [Flonase Allergy Relief] 50 mcg/actuation [place],Suspension 2 spray INTRANASAL DAILY RF: 0 ezetimibe [Zetia] 10 mg Tablet 10 mg PO DAILY RF: 0 omega-3 fatty acids-vitamin E 1,000 mg Capsule 1 cap PO DAILY RF: 0 lutein-zeaxanthin 25-5 mg Capsule 1 cap PO DAILY RF: 0 methotrexate sodium 5 mg Tablet See Rx Instructions .ROUTE .COMPLEX RF: 0 folic acid 1 mg Tablet 1 mg PO DAILY RF: 0 fluoxetine 20 mg Capsule 20 mg PO DAILY RF: 0 ketoconazole 1 % Shampoo 1 applic TOPICAL 2XW RF: 0 Discontinued aspirin [Aspir-81] 81 mg Tablet,Delayed Release (Dr/Ec) 81 mg PO DAILY RF: 0 Follow up/Referrals: Anderson Tapia MD [Primary Care Provider] - Danilo Solorzano MD [Physician] - 2 Weeks Diet/Activity/Treatments Diet: Regular Activity: WBAT LLE, work on gentle ROM. ROM goal by 2 weeks post op is full extension to 90 degrees of flexion Cold/Heat Therapy: ICE as needed for pain and swelling control Skin/Wound/Dressing Care Dressing: Leave dressings in place. OK to shower over dressings. Do not soak. Visit Report/Discharge Packet Instructions: DI for Knee Replacement Discharge Data Primary Care Provider: Anderson Tapia Attending Provider: Danilo Solorzano Quality VTE Deep Vein Thrombosis/Pulmonary Embolism Present on Admission: No
[2020-08-18] MEDS: OXYCODONE IR 5 MG TABLET PO ×2 (09:44→13:15)
--- NOTE | 2020-08-18 10:38 | PT.IIE ---
Current Diagnoses Obesity, unspecified (08/17/20) Sleep apnea, unspecified (08/17/20) Essential (primary) hypertension (08/17/20) Unilateral primary osteoarthritis, left knee (08/17/20) Surgery Performed Operation Date: 08/17/20 11:45 Actual Procedures p Total Knee Arthroplasty(Left) - Danilo Solorzano MD Surgical History (Last Updated 08/10/20 @ 16:01 by Laurita Bonilla, RN) H/O hernia repair History of total knee arthroplasty Medical History (Last Updated 08/10/20 @ 16:32 by Laurita Bonilla, RN) Arthritis Depression Fracture Hypertension Obesity Primary osteoarthritis of left knee Psoriasis RBBB Sleep apnea Physical Therapy Inpatient Evaluation/Re-Eval M1 PT/OT-IP Prior Functional Status Start: 08/18/20 13:09 Freq: NEEDED Status: Active Protocol: Document 08/18/20 10:38 AB (Rec: 08/18/20 13:45 AB [id number]) Medical Review Prior Functional Status Medical History Reviewed Yes Communication able to make needs known Mobility and Gait pt stated that he is indpeendent with all mobilities and ambulation without AD Social History Household Members spouse Living Arrangements House Number of Floors (Floors) Two Floors Number of Stairs To Enter/Railing? pt stays on main level of the house has 4 steps with L rail ascending Home Environment High Toilet,Walk in Shower Home Equipment Front Wheel Walker,Straight Cane,Shower Seat without Backrest,Grab Bars Near Toilet ,Grab Bars In Shower M2 PT-IP Current Condition Start: 08/18/20 13:09 Freq: NEEDED Status: Active Protocol: Document 08/18/20 10:38 AB (Rec: 08/18/20 13:45 AB [id number]) Physical Therapy Current Condition Current Condition Evaluation Date 08/18/20 Treatment Diagnosis s/p L TKA; difficulty in walking Onset Date 08/17/20 Weight Bearing Status Weight Bearing Status Weight Bear as Tolerated Allowed Weight Bearing Amount (enter % LLE WBAT or #) (%) M3 PT-IP Subjective Start: 08/18/20 13:09 Freq: NEEDED Status: Active Protocol: Document 08/18/20 10:38 AB (Rec: 08/18/20 13:45 AB [id number]) Subjective Physical Therapy Visit Type Type Initial Evaluation Visit Start Time 10:38 Visit Stop Time 11:10 Total Visit Minutes 32 Number of SALES AND MARKETING ENGINEER Visits 0 Physical Therapy Visit Comments Patient Comments pt is agreeable to do PT Therapy Pain Assessment Pain When Pain Assessed At Rest Pain Present Pain Present Pain Reported Location left knee Intensity 3 Scale Used increases with mobility Pain Management Techniques Apply Cold,Modification of Treatment,Re-positioning, Timing of Activity with Medications M4 PT-IP Mobility and Gait Start: 08/18/20 13:09 Freq: NEEDED Status: Active Protocol: Document 08/18/20 10:38 AB (Rec: 08/18/20 13:45 AB [id number]) PT-Bed Mobility Assessment Supine to Sit Supine to Sit Standby Assistance Sit to Supine Sit to Supine Standby Assistance PT-Transfer Assessment Sit to and From Stand Sit to and from Stand Standby Assistance Equipment Transfer Assistive Device Gait Belt,Front Wheeled Walker Orthotic/Prosthetic Devices or Brace: No Comments Mobility Comments completed supine to sit SBA and ambulation in room using FWW SBA. agreed to do stairs. ambulated in the hallway ~ 125 ft using FWW SBA and completed up/down steps using L rail SBA. pt ambulated back to his room. requested to go back to bed. completed sit to supine SBA. positioned in bed. call light and table placed within reach. Gait Assessment Gait Gait Assistance Required: Standby Assistance Distance (Feet) 125 Able to Maintain Weight Bearing Status Yes During Gait Assistive Devices Assistive Device Gait Belt,Front Wheeled Walker Orthotic/Prosthetic Devices or Brace: No Gait Deviations General Gait Pattern Antalgic,Decreased Stride Length,Decreased Feet Clearance Factors Limiting Gait Function Factors Limiting Gait Function Decreased Activity Tolerance, Decreased Strength,Difficulty Following Directions,Limited Range of Motion,Pain,Poor Balance,Poor Safety Awareness Stair Climbing Assessment Evaluation Level of Assist On Stairs Standby Assistance Devices Stair Climbing Assistive Devices Left Railing Technique/Endurance Stair Climbing Direction Ascend and Descend Stair Climbing Technique Step to Step Number of Steps Climbed 3 Query Text: Stair Climbing Set # Repetitions (reps) 1 PT-Balance Assessment Sitting Balance and Reactions Static Sitting Balance Ability Good Dynamic Sitting Balance Ability Good Standing Balance and Reactions Static Standing Balance Ability Fair Dynamic Standing Balance Ability Fair Device Used FWW M5 PT-IP Objective Assessments Start: 08/18/20 13:09 Freq: NEEDED Status: Active Protocol: Document 08/18/20 10:38 AB (Rec: 08/18/20 13:45 AB [id number]) Orientation Orientation/Cognition Level of Alertness Alert Orientation Name,Place,Situation Language Function Ability No Deficits Noted Safety Awareness Decreased Safety Awareness Memory Description No Deficits Noted Strength Lower Extremity Strength Assessment Left Impaired Hip 4-/5 Knee 3+/5 Sensation Assessment Sensation Gross Sensation WNL Muscle Tone Muscle Tone WNL Yes M6 PT-IP Treatment Start: 08/18/20 13:09 Freq: NEEDED Status: Active Protocol: Document 08/18/20 10:38 AB (Rec: 08/18/20 13:45 AB [id number]) Physical Therapy Treatment Education Education Provided Precautions,Weight Bearing Status,Post-Op Packet,Safety M7 PT-IP Assessment and Plan Start: 08/18/20 13:09 Freq: NEEDED Status: Active Protocol: Document 08/18/20 10:38 AB (Rec: 08/18/20 13:45 AB [id number]) PT Summary Assessment and Plan Potential Rehabilitation Potential Good Status of Condition at Evaluation Stable Summary Impairments Pain,ROM,Strength,Balance, Coordination,Cognition,Bed Mobility,Transfers,Gait, Activity Tolerance Assessment Summary pt requiring SBA with mobility and plans to go home today with spouse to assist him. pt may go home when medically stable. pt stated that he is set up for outpt PT. Goals Bed Mobility Goal Independent Transfer Goal Independent,Front Wheeled Walker Gait Goal Independent,Front Wheel Walker Gait Distance 250 Other Goals up/down 4 steps L rail Days to Meet Goals 5 Frequency of Treatment Frequency Of Treatment Twice a Day Treatment Plan Physical Therapy Treatment Plan Bed Mobility Training,Transfer Training,Gait Training, Therapeutic Exercise,Balance Retraining,Post Op Education, Discharge Planning,Hot or Cold Pack,Neuromuscular Re-ed, Coordination Retraining,Manual Therapy Recommendations To Nursing Amount of Assist Needed Standby Assistance Discharge Recommendations PT Discharge Recommendations Home with Assistance, Outpatient PT Transportation Needs at Discharge Private Vehicle
--- NOTE | 2020-08-18 11:07 | CM.DANOTE ---
DCP: Case received, EMR reviewed and met with patient. Introduced self and role. Was able to obtain information from patient regarding his baseline activity level prior to having surgery. DCP assessment completed with information currently available. Patient is a 70 year old male who admitted yesterday morning to the care of the orthopedic team. PCP: Dr. Tapia. Payer: confirmed: Medicare/[facility]. Patient came to the hospital via private vehicle for a surgical procedure. He had a left total knee arthroplasty. Patient has had history of osteoarthritis of his left knee. Met with patient in his room. He is alert and oriented, pleasant. He resides here in [place] with his spouse, Tia. He is independent at baseline. Patient indicated that he is already set up with outpatient P.T. here in [place]. He has 4 steps to get into his home, but no further steps. Stated that his spouse can assist him with any needs. P: Patient is to discharge home today after he works with P.T. Kirsty Cope RN/Licensed Massage Therapist
[2020-08-18 12:00] VITALS: BP 136/77; PULSE 67; RESP 16; TEMP 36.7; O2SAT 96
[2020-08-18] MEDS: DOCUSATE 100 MG CAPSULE PO (13:19)
--- NOTE | 2020-08-18 13:59 | PC.NURSE ---
Pt discharge education given to pt and , discussed- medication safety, activity, diet, weight measures, dressing care, s/s of infection, s/s of stroke, reasons to seek medical attention, DI paperwork for total knee surgery and DI paperwork for opioid use. IV removed, intact, tolerated well. Pt and expressed understanding of education. Pt dressed with assistance by . All belongings sent with , including walker. Pt left via w/c assisted by myself and , brought to POV.
== END 2020-08-18 14:02 | disposition home or self-care (01) ==
LOC: OR 10:27 → AC 10:27
PROVIDERS: PCP Internal Medicine; Referring Provider Internal Medicine; Visit Provider Orthopaedic Surgery Adult Reconstructive Orthopaedic Surgery
PROC: 0SRD0JZ Replacement of Left Knee Joint with Synthetic Substitute, Open Approach (ICD-10-PCS; CPT 27447; principal; 2020-08-17 11:45)
DX: M17.12 Unilateral primary osteoarthritis, left knee (principal); M21.162 Varus deformity, not elsewhere classified, left knee; G47.33 Obstructive sleep apnea (adult) (pediatric); E66.9 Obesity, unspecified; I10 Essential (primary) hypertension; Z68.35 Body mass index [BMI] 35.0-35.9, adult
CPT/HCPCS: 27447; 36415; 73560; 85014; 85018; 94762; 97161; C1776; J0690; J1100; J1885; J2250; J2270; J2274; J2405; J2704; J3010

== ENCOUNTER → 2020-09-05 11:47 | Outpatient (CLI) | payer MEDICARE, BC, SELFPAY ==
[2020-08-17 14:41] VITALS: BMI 33.9
[2020-09-05 11:55] LABS: Bacteria Urine None Seen
[2020-09-05 12:16] LABS: Hematocrit 33.9 % (41-53); Hemoglobin 11.5 g/dL (13.5-17.5)
[2020-09-05 12:21] LABS: Appearance Urine UA CLEAR; Bilirubin Urine UA NEGATIVE (NEGATIVE); Color Urine UA YELLOW; Glucose Urine UA NEGATIVE (Negative); Ketones Urine UA TRACE (NEGATIVE); Leukocyte Esterase Urine UA NEGATIVE (NEGATIVE); Nitrite Urine UA NEGATIVE (Negative); Occult Blood Urine UA NEGATIVE (Negative); Protein Urine UA TRACE (Negative); Specific Gravity Urine UA 1.015 (1.000-1.035); Urobilinogen Urine UA 0.2 E.U./dL (0.2); pH Urine UA 5.5 (4.5-8.0)
[2020-09-05 12:34] LABS: BUN Creatinine Ratio 24.3 (6-22); Blood Urea Nitrogen 25 mg/dL (9-20); Calcium 9.1 mg/dL (8.4-10.2); Carbon Dioxide 30 mmol/L (22-32); Chloride 102 mmol/L (98-107); Estimated Glomerular Filt Rate > 60.0 mL/min (>60); Glucose 105 mg/dL (80-110); HEMOLYSIS < 15 (0-50); Potassium 4.4 mmol/L (3.4-5.1); Sodium 136 mmol/L (137-145)
[2020-09-05 12:46] LABS: Culture Indicated Urine Cult Not Indicated; Hyaline Casts Urine 10-30/LPF; RBC Urine 1-5/HPF (0-5/HPF); WBC Urine 1-5/HPF (0-5/HPF)
[2020-09-05 16:14] LABS: Creatinine Urine Random 205.6 mg/dL; Protein (Total) Urine Random 12 mg/dL (0-12); Protein Creatinine Ratio Urine 0.05 GRAM/24H
[2020-09-06 07:10] LABS: Parathyroid Hormone Int 78 pg/mL (15-65)
== END ==
PROVIDERS: PCP Internal Medicine; Referring Provider Student in an Organized Health Care Education/Training Program; Visit Provider Student in an Organized Health Care Education/Training Program
DX: N05.9 Unspecified nephritic syndrome with unspecified morphologic changes (principal); D64.9 Anemia, unspecified; N25.81 Secondary hyperparathyroidism of renal origin; N30.00 Acute cystitis without hematuria; R80.9 Proteinuria, unspecified
CPT/HCPCS: 36415; 80048; 81001; 82570; 83970; 84156; 85014; 85018

== ENCOUNTER → 2020-12-21 15:40 | Outpatient (CLI) | payer MEDICARE, BC, SELFPAY ==
[2020-08-17 14:41] VITALS: BMI 33.9
[2020-12-21 16:01] LABS: Add Manual Diff / Slide Review NO; Basophils Absolute Auto 0 /uL (0-100); Basophils Percent Auto 0.5 % (0-2); Eosinophils Absolute Auto 300 /uL (0-450); Eosinophils Percent Auto 3.8 % (2-4); Hematocrit 34.7 % (41-53); Lymphocytes Absolute Auto 1400 /uL (1100-4500); Lymphocytes Percent Auto 19.5 % (25-40); Mean Corpuscular HGB Conc 34.7 % (30-36); Mean Corpuscular Hemoglobin 33.7 PG (26-34); Mean Corpuscular Volume 97.2 fL (80-100); Monocytes Absolute Auto 500 /uL (0-900); Monocytes Percent Auto 6.9 % (3-14); Neutrophils Absolute Auto 4900 /uL (1500-7000); Neutrophils Percent Auto 69.3 % (50-75); Platelet Count 244 X10^3/uL (150-400); Red Blood Cell Count 3.57 X10^6/uL (4.5-5.9); Red Cell Distribution Width 14.5 % (11.6-14.8); White Blood Cell Count 7.1 X10^3/uL (4.5-11.0)
[2020-12-21 16:20] LABS: Erythrocyte Sedimentation Rate 34 MM/HR (0-15)
[2020-12-21 16:36] LABS: Alanine Aminotransferase 17 IU/L (<50); Albumin 3.9 g/dL (3.5-5.0); Albumin Globulin Ratio 1.4 (1.0-2.8); Alkaline Phosphatase 57 U/L (38-126); Aspartate Aminotransferase 30 IU/L (17-59); BUN Creatinine Ratio 19.4 (6-22); Bilirubin Total 0.3 mg/dL (0.2-1.3); Blood Urea Nitrogen 26 mg/dL (9-20); C-Reactive Protein Quant 0.7 mg/dL (<1.0); Calcium 8.9 mg/dL (8.4-10.2); Carbon Dioxide 24 mmol/L (22-32); Chloride 105 mmol/L (98-107); Estimated Glomerular Filt Rate 52.9 mL/min (>60); Globulin 2.8 g/dL (1.7-4.1); Glucose 118 mg/dL (80-110); HEMOLYSIS < 15 (0-50); Potassium 4.2 mmol/L (3.4-5.1); Sodium 137 mmol/L (137-145); Total Protein 6.7 g/dL (6.3-8.2)
[2020-12-22 15:57] LABS: Hep C Virus Ab w/Reflex Quant NEGATIVE s/c (NEGATIVE)
== END ==
PROVIDERS: PCP Internal Medicine; Referring Provider Internal Medicine Rheumatology; Visit Provider Internal Medicine Rheumatology
DX: Z11.59 Encounter for screening for other viral diseases (principal); L40.50 Arthropathic psoriasis, unspecified
CPT/HCPCS: 36415; 80053; 85025; 85651; 86140; 86803

== ENCOUNTER → 2021-01-27 15:17 | Outpatient (CLI) | payer MEDICARE, BC, SELFPAY ==
[2020-08-17 14:41] VITALS: BMI 33.9
[2021-01-27 16:25] LABS: Hematocrit 34.4 % (41-53); Hemoglobin 11.8 g/dL (13.5-17.5)
[2021-01-27 16:58] LABS: BUN Creatinine Ratio 19.8 (6-22); Blood Urea Nitrogen 23 mg/dL (9-20); Calcium 8.9 mg/dL (8.4-10.2); Carbon Dioxide 26 mmol/L (22-32); Chloride 106 mmol/L (98-107); Estimated Glomerular Filt Rate > 60.0 mL/min (>60); Glucose 100 mg/dL (80-110); HEMOLYSIS 19 (0-50); Potassium 3.6 mmol/L (3.4-5.1); Sodium 138 mmol/L (137-145)
[2021-01-27 18:40] LABS: Protein (Total) Urine Random 5 mg/dL (0-12)
[2021-01-27 19:35] LABS: Creatinine Urine Random 424.4 mg/dL; Protein Creatinine Ratio Urine 0.01 GRAM/24H
[2021-01-28 11:21] LABS: Parathyroid Hormone Int 56 pg/mL (15-65)
== END ==
PROVIDERS: PCP Internal Medicine; Referring Provider Student in an Organized Health Care Education/Training Program; Visit Provider Student in an Organized Health Care Education/Training Program
DX: N05.9 Unspecified nephritic syndrome with unspecified morphologic changes (principal); R80.9 Proteinuria, unspecified; D64.9 Anemia, unspecified; N25.81 Secondary hyperparathyroidism of renal origin
CPT/HCPCS: 36415; 80048; 82570; 83970; 84156; 85014; 85018

== ENCOUNTER 2021-03-25 16:58 | Emergency (ER) | payer MEDICARE, BC, SELFPAY ==
[2020-08-17 14:41] VITALS: BMI 33.9
[2021-03-25 17:33] VITALS: BP 169/88; PULSE 72; RESP 18; TEMP 36.8; O2SAT 99; BMI 35.2
--- NOTE | 2021-03-25 17:38 | DI.RAD.S_ITS ---
PROCEDURE: XR HAND LT MIN 3V INDICATIONS: Fall, bruising TECHNIQUE: 3 views of the hand(s) acquired. COMPARISON: [facility], CR, XR HAND 3+ VIEWS BILATERAL, 10/30/2017, 14:07. FINDINGS: Bones: No acute fractures or dislocations. Focal degenerative change is seen of the 1st carpometacarpal joint, yet without a displaced fracture. The appearance is similar to 2018. Milder degenerative changes are seen elsewhere. Carpal bones are normally aligned. No suspicious bony lesions. Soft tissues: No suspicious soft tissue calcifications. IMPRESSION: No displaced fracture is identified on these plain films. Focal 1st carpometacarpal joint degenerative change. Dictated by: Rashaad Wong M.D. on 03/25/2021 at 16:58 Approved by: Rashaad Wong M.D. on 03/25/2021 at 16:59
--- NOTE | 2021-03-25 19:12 | ED_ITS ---
HPI - Extremity Injury (Upper) General Chief Complaint: Extremity Injury, Upper Stated Complaint: lt hand swellling Time Seen by Provider: 03/25/21 19:12 Source: patient Mode of arrival: Ambulatory Limitations: no limitations Related Data Home Medications Medication Instructions Recorded Confirmed carvedilol 25 mg tablet 37.5 mg PO BID 08/10/20 08/17/20 celecoxib 200 mg capsule 200 mg PO BID 08/10/20 08/17/20 diphenhydramine HCl 25 mg capsule 25 mg PO BEDTIME 08/10/20 08/17/20 (Benadryl) ezetimibe 10 mg tablet (Zetia) 10 mg PO DAILY 08/10/20 08/17/20 fluoxetine 20 mg capsule 20 mg PO DAILY 08/10/20 08/17/20 fluticasone propionate 50 2 spray INTRANASAL DAILY 08/10/20 08/17/20 mcg/actuation nasal spray,suspension (Flonase Allergy Relief) folic acid 1 mg tablet 1 mg PO DAILY 08/10/20 08/17/20 ketoconazole 1 % shampoo 1 applic TOPICAL 2XW 08/10/20 08/17/20 lutein 25 mg-zeaxanthin 5 mg 1 cap PO DAILY 08/10/20 08/17/20 capsule methocarbamol 750 mg tablet 750 mg PO TID 08/10/20 08/17/20 methotrexate sodium 5 mg tablet See Rx Instructions .ROUTE .COMPLEX 08/10/20 08/17/20 multivitamin 1 tab PO DAILY 08/10/20 08/17/20 nifedipine 60 mg tablet,extended 60 mg PO DAILY 08/10/20 08/17/20 release omega-3 fatty acids-vitamin E 1 cap PO DAILY 08/10/20 08/17/20 1,000 mg capsule Previous Rx's Medication Instructions Recorded aspirin 81 mg tablet,delayed 81 mg PO BID #84 tab 08/18/20 release Allergies Allergy/AdvReac Type Severity Reaction Status Date / Time hydrochlorothiazide Allergy Intermediate Rash Verified 03/25/21 17:33 hydralazine Allergy Unknown doesn't Verified 03/25/21 17:33 remember Txbjzys-Ize-Otj Reductase Allergy Unknown Nothing Verified 08/17/20 10:43 Inhibitor good poss acute pancreatitis Patient History Medical History (Updated 08/10/20 @ 16:32 by Laurita Bonilla RN) Arthritis Depression Fracture Hypertension Obesity Primary osteoarthritis of left knee Psoriasis RBBB Sleep apnea Surgical History (Updated 08/10/20 @ 16:01 by Laurita Bonilla RN) H/O hernia repair History of total knee arthroplasty Social History household members: spouse Smoking Status: Never smoker alcohol intake: current Smoking Status: Never smoker alcohol intake frequency: holidays/special occasions only Substance Use Type: does not use Exam Initial Vital Signs Initial Vital Signs: Vital Signs Temperature 98.2 F 03/25/21 17:33 Pulse Rate 72 03/25/21 17:33 Respiratory Rate 18 03/25/21 17:33 Blood Pressure 169/88 H 03/25/21 17:33 Pulse Oximetry 99 03/25/21 17:33 Course Orders Ordered: ED Orders 03/25/21 17:38 XR hand LT min 3V Stat Vital Signs Vital signs: Vital Signs - 8 hr 03/25/21 17:33 Temperature 98.2 F Pulse Rate 72 Respiratory Rate 18 Blood Pressure 169/88 H Pulse Oximetry 99 MDM - Extremity Injury (Upper) Imaging Data XR hand: Radiologist's Impression: FINDINGS: Bones: No acute fractures or dislocations. Focal degenerative change is seen of the 1st carpometacarpal joint, yet without a displaced fracture. The appearance is similar to 2018. Milder degenerative changes are seen elsewhere. Carpal bones are normally aligned. No suspicious bony lesions. Soft tissues: No suspicious soft tissue calcifications. IMPRESSION: No displaced fracture is identified on these plain films. Focal 1st carpometacarpal joint degenerative change. Dictated by: Rashaad Wong M.D. on 03/25/2021 at 16:58 Discharge Plan Departure Prescriptions: No Action multivitamin Tablet 1 tab PO DAILY RF: 0 celecoxib 200 mg Capsule 200 mg PO BID RF: 0 carvedilol 25 mg Tablet 37.5 mg PO BID RF: 0 methocarbamol 750 mg Tablet 750 mg PO TID RF: 0 diphenhydramine HCl [Benadryl] 25 mg Capsule 25 mg PO BEDTIME RF: 0 nifedipine 60 mg Tablet Extended Release 60 mg PO DAILY RF: 0 fluticasone propionate [Flonase Allergy Relief] 50 mcg/actuation [place],Suspension 2 spray INTRANASAL DAILY RF: 0 ezetimibe [Zetia] 10 mg Tablet 10 mg PO DAILY RF: 0 omega-3 fatty acids-vitamin E 1,000 mg Capsule 1 cap PO DAILY RF: 0 lutein-zeaxanthin 25-5 mg Capsule 1 cap PO DAILY RF: 0 methotrexate sodium 5 mg Tablet See Rx Instructions .ROUTE .COMPLEX RF: 0 folic acid 1 mg Tablet 1 mg PO DAILY RF: 0 fluoxetine 20 mg Capsule 20 mg PO DAILY RF: 0 ketoconazole 1 % Shampoo 1 applic TOPICAL 2XW RF: 0 aspirin 81 mg Tablet,Delayed Release (Dr/Ec) 81 mg PO BID Qty: 84 RF: 0 Referrals: Anderson Tapia MD [Primary Care Provider] -
--- NOTE | 2021-03-25 19:12 | ED.UPPEXIN ---
HPI - Extremity Injury (Upper) General Chief Complaint: Extremity Injury, Upper Stated Complaint: lt hand swellling Time Seen by Provider: 03/25/21 19:12 Source: patient Mode of arrival: Ambulatory Limitations: no limitations History of Present Illness HPI narrative: 71-year-old right-handed male presents to the ED today for left hand pain after tripping and falling, hitting his hand on the ground. He states he also hit his head and his chest although those were not as bad. He has a mild contusion on his left eyebrow, with swelling and ecchymosis to his left hand. Patient denies any shortness of breath, dizziness, LOC, or lightheadedness. He reports having full range of motion of his hand and wrist, no pain in his elbow, was concerned 5 amount of bruising on his hand. He is not on any anticoagulants, however he does take a baby aspirin each day. The contusion on his eyebrow is small on the left lateral eyebrow. It does not affect his vision or his eye opening. Related Data Home Medications Medication Instructions Recorded Confirmed carvedilol 25 mg tablet 37.5 mg PO BID 08/10/20 08/17/20 celecoxib 200 mg capsule 200 mg PO BID 08/10/20 08/17/20 diphenhydramine HCl 25 mg capsule 25 mg PO BEDTIME 08/10/20 08/17/20 (Benadryl) ezetimibe 10 mg tablet (Zetia) 10 mg PO DAILY 08/10/20 08/17/20 fluoxetine 20 mg capsule 20 mg PO DAILY 08/10/20 08/17/20 fluticasone propionate 50 2 spray INTRANASAL DAILY 08/10/20 08/17/20 mcg/actuation nasal spray,suspension (Flonase Allergy Relief) folic acid 1 mg tablet 1 mg PO DAILY 08/10/20 08/17/20 ketoconazole 1 % shampoo 1 applic TOPICAL 2XW 08/10/20 08/17/20 lutein 25 mg-zeaxanthin 5 mg 1 cap PO DAILY 08/10/20 08/17/20 capsule methocarbamol 750 mg tablet 750 mg PO TID 08/10/20 08/17/20 methotrexate sodium 5 mg tablet See Rx Instructions .ROUTE .COMPLEX 08/10/20 08/17/20 multivitamin 1 tab PO DAILY 08/10/20 08/17/20 nifedipine 60 mg tablet,extended 60 mg PO DAILY 08/10/20 08/17/20 release omega-3 fatty acids-vitamin E 1 cap PO DAILY 08/10/20 08/17/20 1,000 mg capsule Previous Rx's Medication Instructions Recorded aspirin 81 mg tablet,delayed 81 mg PO BID #84 tab 08/18/20 release Allergies Allergy/AdvReac Type Severity Reaction Status Date / Time hydrochlorothiazide Allergy Intermediate Rash Verified 03/25/21 17:33 hydralazine Allergy Unknown doesn't Verified 03/25/21 17:33 remember Ligcewd-Tre-Oxb Reductase Allergy Unknown Nothing Verified 08/17/20 10:43 Inhibitor good poss acute pancreatitis Review of Systems Review of Systems Narrative: General: denies fever, chills Head/Neck: denies headache, neck pain Eyes: denies visual changes, eye pain Cardio: denies chest pain, palpitations Respiratory: denies shortness of breath, cough GI: denies abdominal pain, nausea, vomiting, or diarrhea : denies dysuria, hematuria MSK: denies joint pain, muscle weakness, endorses left hand bruising and pain after fall, no pain at this time. Skin: denies rash, itching Neuro: denies numbness, tingling Patient History Medical History Arthritis Depression Fracture Hypertension Obesity Primary osteoarthritis of left knee Psoriasis RBBB Sleep apnea Surgical History H/O hernia repair History of total knee arthroplasty Social History household members: spouse Smoking Status: Never smoker alcohol intake: current Smoking Status: Never smoker alcohol intake frequency: holidays/special occasions only Substance Use Type: does not use Exam Narrative Exam Narrative: Independently reviewed vitals signs and nursing notes. General: Awake, alert, nontoxic, no cardiorespiratory distress Head/Neck: Atraumatic, neck full range of motion Eyes: EOMI, conjunctiva normal Nose: nares patent, no rhinorrhea Mouth/Throat: moist mucus membranes, posterior pharynx normal, no oral lesions Cardio: Regular rate and rhythm, no peripheral edema Respiratory: respirations unlabored without wheezing, stridor, or rales. No retractions. No ecchymosis or swelling palpable to left upper chest. Breath sounds are clear throughout, nonpainful to palpation, no crepitus. GI: Abdomen soft, nontender MSK: Moves all extremities, neurovascularly intact, no snuffbox tenderness, full ROM of left wrist intact, radial pulse 2+, cap refill < 2 seconds to all fingers, including flexion and extension of all fingers on left. Skin: Normal capillary refill, no rash, ecchymosis to dorsum of left hand, small contusion with mild edema to left lateral eyebrow. Neuro: Normal speech and cognition, normal gait Initial Vital Signs Initial Vital Signs: Vital Signs Temperature 98.2 F 03/25/21 17:33 Pulse Rate 72 03/25/21 17:33 Respiratory Rate 18 03/25/21 17:33 Blood Pressure 169/88 H 03/25/21 17:33 Pulse Oximetry 99 03/25/21 17:33 Course Orders Ordered: ED Orders 03/25/21 17:38 XR hand LT min 3V Stat Vital Signs Vital signs: Vital Signs - 8 hr 03/25/21 17:33 Temperature 98.2 F Pulse Rate 72 Respiratory Rate 18 Blood Pressure 169/88 H Pulse Oximetry 99 MDM - Extremity Injury (Upper) MDM Narrative Medical decision making narrative: PROCEDURE:? XR HAND LT MIN 3V ? INDICATIONS:? Fall, bruising ? TECHNIQUE:? 3 views of the hand(s) acquired.? ? COMPARISON:? [facility], CR, XR HAND 3+ VIEWS BILATERAL, 10/30/2017, 14:07. ? FINDINGS:? ? Bones:? No acute fractures or dislocations.? Focal degenerative change is seen of the 1st carpometacarpal joint, yet without a displaced fracture.? The appearance is similar to 2018. Milder degenerative changes are seen elsewhere.? ? Carpal bones are normally aligned.? No suspicious bony lesions.? ? Soft tissues:? No suspicious soft tissue calcifications.? ? ? IMPRESSION:? No displaced fracture is identified on these plain films. ? Focal 1st carpometacarpal joint degenerative change. ? ? Dictated by: Rashaad Wong M.D. on 03/25/2021 at 16:58 ? ? Approved by: Rashaad Wong M.D. on 03/25/2021 at 16:59 ? This is a 71-year-old male who presents to the ED for left hand pain after a fall. His x-ray was negative for fracture, on exam he did not have any wrist pain to palpation, snuffbox tenderness, changes to range of motion. Capillary refill was less than 2 seconds. This is most likely a left hand contusion, a left eyebrow contusion, and left rib pain. He does not have any shortness of breath, chest pain, difficulty breathing, dizziness, or lightheadedness. He states he tripped and then fell but caught most of his fall with his hand. He denied the need for pain medication in the ER today. Patient is appropriate and amenable to discharge home. Vital signs are stable on repeat examination is unremarkable. Patient has been informed of results. Patient has been given strict return to ER precautions for any new or worsening symptoms. Patient understands to follow up closely with outpatient providers as instructed. Patient understands plan and agrees to discharge home. All questions and concerns answered at this time.] Discharge Plan Departure Prescriptions: No Action multivitamin Tablet 1 tab PO DAILY RF: 0 celecoxib 200 mg Capsule 200 mg PO BID RF: 0 carvedilol 25 mg Tablet 37.5 mg PO BID RF: 0 methocarbamol 750 mg Tablet 750 mg PO TID RF: 0 diphenhydramine HCl [Benadryl] 25 mg Capsule 25 mg PO BEDTIME RF: 0 nifedipine 60 mg Tablet Extended Release 60 mg PO DAILY RF: 0 fluticasone propionate [Flonase Allergy Relief] 50 mcg/actuation [place],Suspension 2 spray INTRANASAL DAILY RF: 0 ezetimibe [Zetia] 10 mg Tablet 10 mg PO DAILY RF: 0 omega-3 fatty acids-vitamin E 1,000 mg Capsule 1 cap PO DAILY RF: 0 lutein-zeaxanthin 25-5 mg Capsule 1 cap PO DAILY RF: 0 methotrexate sodium 5 mg Tablet See Rx Instructions .ROUTE .COMPLEX RF: 0 folic acid 1 mg Tablet 1 mg PO DAILY RF: 0 fluoxetine 20 mg Capsule 20 mg PO DAILY RF: 0 ketoconazole 1 % Shampoo 1 applic TOPICAL 2XW RF: 0 aspirin 81 mg Tablet,Delayed Release (Dr/Ec) 81 mg PO BID Qty: 84 RF: 0 Referrals: Anderson Tapia MD [Primary Care Provider] -
== END 2021-03-25 19:26 | disposition home or self-care (01) ==
PROVIDERS: Emergency Provider Nurse Practitioner Critical Care Medicine; PCP Internal Medicine
DX: S00.12XA Contusion of left eyelid and periocular area, initial encounter (principal); R07.81 Pleurodynia; S09.90XA Unspecified injury of head, initial encounter; S60.222A Contusion of left hand, initial encounter; W01.0XXA Fall on same level from slipping, tripping and stumbling without subsequent striking against object, initial encounter
CPT/HCPCS: 73130; 99283

== ENCOUNTER → 2021-05-03 08:09 | Outpatient (CLI) | payer MEDICARE, BC, SELFPAY ==
[2020-08-17 14:41] VITALS: BMI 33.9
[2021-05-03 09:08] LABS: Add Manual Diff / Slide Review NO; Basophils Absolute Auto 100 /uL (0-100); Basophils Percent Auto 1.1 % (0-2); Eosinophils Absolute Auto 400 /uL (0-450); Eosinophils Percent Auto 6.4 % (2-4); Hematocrit 37.5 % (41-53); Hemoglobin 12.8 g/dL (13.5-17.5); Lymphocytes Absolute Auto 1100 /uL (1100-4500); Lymphocytes Percent Auto 19.1 % (25-40); Mean Corpuscular HGB Conc 34.2 % (30-36); Mean Corpuscular Hemoglobin 33.5 PG (26-34); Mean Corpuscular Volume 98.1 fL (80-100); Monocytes Absolute Auto 600 /uL (0-900); Monocytes Percent Auto 10.7 % (3-14); Neutrophils Absolute Auto 3400 /uL (1500-7000); Neutrophils Percent Auto 62.7 % (50-75); Platelet Count 251 X10^3/uL (150-400); Red Blood Cell Count 3.82 X10^6/uL (4.5-5.9); Red Cell Distribution Width 14.3 % (11.6-14.8); White Blood Cell Count 5.5 X10^3/uL (4.5-11.0)
[2021-05-03 10:09] LABS: Alanine Aminotransferase 19 IU/L (<50); Albumin Globulin Ratio 1.5 (1.0-2.8); Alkaline Phosphatase 51 U/L (38-126); Aspartate Aminotransferase 27 IU/L (17-59); BUN Creatinine Ratio 18.6 (6-22); Bilirubin Total 0.6 mg/dL (0.2-1.3); Blood Urea Nitrogen 22 mg/dL (9-20); Calcium 9.3 mg/dL (8.4-10.2); Carbon Dioxide 31 mmol/L (22-32); Chloride 102 mmol/L (98-107); Cholesterol 207 mg/dL (140-199); Estimated Glomerular Filt Rate > 60.0 mL/min (>60); Globulin 2.6 g/dL (1.7-4.1); Glucose 96 mg/dL (80-110); HDL Cholesterol 45 mg/dL (40-60); HEMOLYSIS < 15 (0-50); LDL Cholesterol Calculated 130 mg/dL (<100); Potassium 3.9 mmol/L (3.4-5.1); Sodium 140 mmol/L (137-145); Total Protein 6.6 g/dL (6.3-8.2); Triglycerides 160 mg/dL (35-150)
== END ==
PROVIDERS: PCP Internal Medicine; Referring Provider Internal Medicine; Visit Provider Internal Medicine
DX: E66.09 Other obesity due to excess calories (principal); I10 Essential (primary) hypertension; Z68.34 Body mass index [BMI] 34.0-34.9, adult; D64.9 Anemia, unspecified; E78.5 Hyperlipidemia, unspecified
CPT/HCPCS: 36415; 80053; 80061; 83036; 85025

== ENCOUNTER → 2021-10-26 14:55 | Outpatient (CLI) | payer MEDICARE, BC, SELFPAY ==
[2020-08-17 14:41] VITALS: BMI 33.9
--- NOTE | 2021-10-26 14:59 | DI.RAD.S_ITS ---
PROCEDURE: XR CHEST 2V INDICATIONS: shortness of breath TECHNIQUE: 2 views of the chest were acquired. COMPARISON: None. FINDINGS: Surgical changes and devices: None. Lungs and pleura: Lungs are clear. No pleural effusions or pneumothorax. Eventration of the right hemidiaphragm. Mediastinum: Mediastinal contours are normal. Heart size is normal. Bones and chest wall: No suspicious bony abnormalities. Soft tissues appear unremarkable. IMPRESSION: No acute cardiopulmonary disease process. Dictated by: Arlene Sanchez MD, PhD on 10/26/2021 at 16:26 Approved by: Arlene Sanchez MD, PhD on 10/26/2021 at 16:27
[2021-10-26 16:19] LABS: Hematocrit 35.9 % (41-53); Hemoglobin 12.4 g/dL (13.5-17.5); Mean Corpuscular HGB Conc 34.6 % (30-36); Mean Corpuscular Hemoglobin 34.1 PG (26-34); Mean Corpuscular Volume 98.4 fL (80-100); Platelet Count 268 X10^3/uL (150-400); Red Blood Cell Count 3.65 X10^6/uL (4.5-5.9); White Blood Cell Count 6.5 X10^3/uL (4.5-11.0)
[2021-10-26 16:38] LABS: Alanine Aminotransferase 18 IU/L (<50); Albumin 4.1 g/dL (3.5-5.0); Albumin Globulin Ratio 1.4 (1.0-2.8); Alkaline Phosphatase 54 U/L (38-126); Aspartate Aminotransferase 27 IU/L (17-59); BUN Creatinine Ratio 23.6 (6-22); Bilirubin Total 0.2 mg/dL (0.2-1.3); Blood Urea Nitrogen 25 mg/dL (9-20); Calcium 8.9 mg/dL (8.4-10.2); Carbon Dioxide 28 mmol/L (22-32); Chloride 107 mmol/L (98-107); Cholesterol 200 mg/dL (140-199); Estimated Glomerular Filt Rate > 60 mL/min (>60); Globulin 2.9 g/dL (1.7-4.1); Glucose 104 mg/dL (80-110); HDL Cholesterol 45 mg/dL (40-60); HEMOLYSIS < 15 (0-50); LDL Cholesterol Calculated 109 mg/dL (<100); Potassium 3.8 mmol/L (3.4-5.1); Sodium 140 mmol/L (137-145); Triglycerides 228 mg/dL (35-150)
== END ==
PROVIDERS: PCP Internal Medicine; Referring Provider Internal Medicine; Visit Provider Internal Medicine
DX: I10 Essential (primary) hypertension (principal); E78.2 Mixed hyperlipidemia; R97.20 Elevated prostate specific antigen [PSA]; R06.02 Shortness of breath
CPT/HCPCS: 36415; 71046; 80053; 80061; 84153; 84443; 85027

== ENCOUNTER → 2021-12-15 13:29 | Outpatient (CLI) | payer MEDICARE, BC, SELFPAY ==
[2020-08-17 14:41] VITALS: BMI 33.9
--- NOTE | 2021-12-15 13:29 | DI.ECHO.S_ITS ---
[facility] +---------+ : : [address] : : : : [id number] : : : : Phone: [phone]+ Echocardiogram Report + + :Name: HCANTELL LONG Study Date: 12/15/2021 Height: 72 in : :[facility] ReadingLocation: Weight: 250 lb : : Gender: Male BSA: 2.3 m2 : :: 1950 Age: 71 yrs BP: 149/63 mmHg: :Reason For Study: Aortic valve stenosis : :Ordering Physician: WHITNEY, : :XIOMARA Performed By: Francois Dean : :Referring: XIOMARA OLSON : + + Interpretation Summary The ejection fraction is estimated to be 65-70%. Diastolic function could not be accurately assessed due to contradictory data. The right ventricle is normal in size and function. The left atrium is mildly dilated. There is mild mitral regurgitation. There is mild aortic stenosis. The right ventricular systolic pressure is estimated to be at least 37 mmHg. Compared to the prior study dated 08/26/2018, there is an increase in the aortic valve mean gradient which still remains in the mild range and there is no change in the calculated valve area. Procedure: A two-dimensional transthoracic echocardiogram with color flow and Doppler was performed. The study quality was technically adequate. Comparison is made with the echocardiogram of 08/26/2018. Left Ventricle: The left ventricle is normal in size and wall thickness. The ejection fraction is estimated to be 65-70%. There are no focal wall motion abnormalities. Diastolic function could not be accurately assessed due to contradictory data. Right Ventricle: The right ventricle is normal in size and function. Atria: The left atrium is mildly dilated. Right atrial size is normal. The interatrial septum grossly appears intact with no obvious evidence for an atrial septal defect. Mitral Valve: The mitral valve is normal in structure and function. There is mild mitral regurgitation. Aortic Valve: The aortic valve is mildly calcified. There is mild aortic stenosis. The calculated aortic valve area is 1.8 cm2. The aortic valve mean gradient is 19 mmHg. There is trace aortic regurgitation. Tricuspid Valve: The tricuspid valve is normal in structure and function. There is trace tricuspid regurgitation. The right ventricular systolic pressure is estimated to be at least 37 mmHg based on an estimated right atrial pressure of 3 mm Hg. Pulmonic Valve: The pulmonic valve is not well seen, but is grossly normal. There is no pulmonic valvular regurgitation. Great Vessels: The aortic root is normal size. The dimensions of the ascending aorta are normal. The IVC is of normal diameter and collapses greater than 50% with a sniff. This suggests a low right atrial pressure of 3 mm Hg. Pericardium/ Pleura There is no pericardial effusion. There is no pleural effusion. MMode/2D Measurements & Calculations LVIDd: 5.8 cm LVOT diam: 2.2 cm LVIDs: 3.4 cm Ao root diam: 3.1 cm FS: 41.5 % asc Aorta Diam: 3.1 cm IVSd: 1.1 cm LVPWd: 0.98 cm LV rojas. diameter/BSA (cm/m^2): 2.5 LV sys. diameter/BSA (cm/m^2): 1.4 LA A2 area: 26.8 cm2 RA long axis: 5.2 cm LA A4 area: 24.7 cm2 RA area: 15.5 cm2 LA length (vol): 6.5 cm RA vol: 39.7 ml LA vol: 85.7 ml RA : 16.9 ml/m2 LA vol index: 36.6 ml/m2 TAPSE: 3.2 cm Doppler Measurements & Calculations Ao V2 max: 311.2 cm/sec LVOT Max Davon: 143.8 cm/sec Ao V2 mean: 215.2 cm/sec LV V1 max P.3 mmHg Ao max P.8 mmHg LV V1 VTI: 32.2 cm Ao mean P.8 mmHg GABBY(I,D): 1.7 cm2 Ao V2 VTI: 67.4 cm GABBY(V,D): 1.7 cm2 sev ratio: 0.48 GABBY indexed to BSA (cm^2/m^2): 0.75 MV E max davon: 66.2 cm/sec TR max davon: 291.6 cm/sec MV A max davon: 88.2 cm/sec TR max P.0 mmHg MV E/A: 0.75 Med Peak E' Davon: 6.5 cm/sec E/E' med: 10.2 Lat Peak E' Davon: 10.6 cm/sec E/E' lat: 6.3 E/e' average: 8.2 MV dec time: 0.31 sec SV(LVOT): 117.9 ml Reading Physician:02:45 PM
== END ==
PROVIDERS: PCP Internal Medicine; Referring Provider Internal Medicine; Visit Provider Internal Medicine
DX: I08.0 Rheumatic disorders of both mitral and aortic valves (principal)
CPT/HCPCS: 93306

== ENCOUNTER → 2022-01-30 12:27 | Outpatient (CLI) | payer MEDICARE, BC, SELFPAY ==
[2020-08-17 14:41] VITALS: BMI 33.9
[2022-01-30 13:05] LABS: Reticulocyte Count, Percent 1.3 % (0.9-2.6)
[2022-01-30 14:49] LABS: HEMOLYSIS < 15 (0-50); Iron 137 ug/dL (49-181)
[2022-01-30 15:02] LABS: Percent Iron Saturation 48 % (20-50); Total Iron Binding Capacity 283 ug/dL (261-462); Transferrin 215 mg/dL (206-381)
[2022-01-30 15:25] LABS: Ferritin 62 ng/mL (18-464)
[2022-01-30 15:40] LABS: Vitamin B12 333 pg/mL (239-931)
[2022-02-01 07:39] LABS: Methylmalonic Acid,Serum 175 nmol/L (0-378)
== END ==
PROVIDERS: PCP Internal Medicine; Referring Provider Internal Medicine; Visit Provider Internal Medicine
DX: D64.9 Anemia, unspecified (principal); E53.8 Deficiency of other specified B group vitamins
CPT/HCPCS: 36415; 82607; 82728; 83540; 83550; 83921; 85045

== ENCOUNTER → 2022-03-26 11:37 | Outpatient (CLI) | payer MEDICARE, BC, SELFPAY ==
[2020-08-17 14:41] VITALS: BMI 33.9
[2022-03-26 13:46] LABS: Add Manual Diff / Slide Review NO; Basophils Absolute Auto 0 /uL (0-100); Basophils Percent Auto 0.7 % (0-2); Eosinophils Absolute Auto 300 /uL (0-450); Eosinophils Percent Auto 5.7 % (2-4); Hemoglobin 12.6 g/dL (13.5-17.5); Lymphocytes Absolute Auto 1000 /uL (1100-4500); Lymphocytes Percent Auto 17.9 % (25-40); Mean Corpuscular HGB Conc 34.9 % (30-36); Mean Corpuscular Hemoglobin 34.2 PG (26-34); Mean Corpuscular Volume 97.8 fL (80-100); Monocytes Absolute Auto 500 /uL (0-900); Monocytes Percent Auto 9.7 % (3-14); Neutrophils Absolute Auto 3600 /uL (1500-7000); Platelet Count 245 X10^3/uL (150-400); Red Blood Cell Count 3.68 X10^6/uL (4.5-5.9); Red Cell Distribution Width 13.9 % (11.6-14.8); White Blood Cell Count 5.5 X10^3/uL (4.5-11.0)
[2022-03-26 14:02] LABS: Erythrocyte Sedimentation Rate 29 MM/HR (0-15)
[2022-03-26 14:28] LABS: Alanine Aminotransferase 17 IU/L (<50); Albumin 3.9 g/dL (3.5-5.0); Albumin Globulin Ratio 1.3 (1.0-2.8); Alkaline Phosphatase 52 U/L (38-126); Aspartate Aminotransferase 30 IU/L (17-59); BUN Creatinine Ratio 20.4 (6-22); Bilirubin Total 0.2 mg/dL (0.2-1.3); Blood Urea Nitrogen 20 mg/dL (9-20); C-Reactive Protein Quant < 0.5 mg/dL (<1.0); Calcium 8.9 mg/dL (8.4-10.2); Carbon Dioxide 25 mmol/L (22-32); Chloride 104 mmol/L (98-107); Estimated Glomerular Filt Rate > 60 mL/min (>60); Globulin 2.9 g/dL (1.7-4.1); Glucose 118 mg/dL (80-110); HEMOLYSIS < 15 (0-50); Potassium 3.6 mmol/L (3.4-5.1); Sodium 141 mmol/L (137-145); Total Protein 6.8 g/dL (6.3-8.2)
== END ==
PROVIDERS: PCP Internal Medicine; Referring Provider Internal Medicine Rheumatology; Visit Provider Internal Medicine Rheumatology
DX: L40.50 Arthropathic psoriasis, unspecified (principal)
CPT/HCPCS: 36415; 80053; 85025; 85651; 86140

== ENCOUNTER → 2022-04-27 13:01 | Outpatient (CLI) | payer MEDICARE, BC, SELFPAY ==
[2020-08-17 14:41] VITALS: BMI 33.9
--- NOTE | 2022-04-27 | DI.RAD.S_ITS ---
PROCEDURE: XR HAND LT MIN 3V INDICATIONS: Arthropathic psoriasis, unspecified TECHNIQUE: 3 views of the hand(s) acquired. COMPARISON: [facility], CR, XR HAND LT MIN 3V, 03/25/2021, 17:46. FINDINGS: Bones: No fractures or dislocations. Moderate 1st CMC degenerative narrowing slightly progressive. Scattered moderate IP degenerative narrowing most severe at the PIP and DIP joints, overall stable. There is scattered areas of periarticular lucency most severe at the 3rd DIP as well as 4th PIP joint . They are slightly more prominent particularly at the 3rd DIP joint compared to prior exam. Soft tissues: No suspicious soft tissue calcifications. IMPRESSION: Arthritic changes as above with interval progression at the 1st CMC as well as 3rd DIP joints. Areas of periarticular lucency could represent subchondral cysts versus erosions and recommend clinical and laboratory value correlation. Dictated by: Dolores Julio M.D. on 04/27/2022 at 16:13 Approved by: Dolores Julio M.D. on 04/27/2022 at 16:15
--- NOTE | 2022-04-27 | DI.RAD.S_ITS ---
PROCEDURE: XR HAND RT MIN 3V INDICATIONS: Arthropathic psoriasis, unspecified TECHNIQUE: 3 views of the hand(s) acquired. COMPARISON: [facility], CR, XR HAND LT MIN 3V, 03/25/2021, 17:46. FINDINGS: Bones: No fractures or dislocations. Moderate to severe 1st CMC degenerative narrowing with subchondral sclerosis. There is moderate to severe IP degenerative narrowing severe at the 2nd and 4th PIP joints. Similar appearance is also noted at the DIP joints. Periarticular osteophytes are present. Subarticular lucencies are present most severe at the 2nd and 3rd PIP joints. Soft tissues: No suspicious soft tissue calcifications. IMPRESSION: Arthritic changes as above most severe at the 1st CMC as well as 2nd and 4th PIP joints. Periarticular lucencies are present as described above which could represent degenerative periarticular cysts versus erosions. Recommend clinical and laboratory correlation. No priors are available for comparison. Dictated by: Dolores Julio M.D. on 04/27/2022 at 16:52 Approved by: Dolores Julio M.D. on 04/27/2022 at 16:54
--- NOTE | 2022-04-27 | DI.RAD.S_ITS ---
PROCEDURE: XR HIP W PEL IF DONE BILAT 2V INDICATIONS: Arthropathic psoriasis, unspecified TECHNIQUE: AP pelvis with lateral view(s) of the bilateral hip(s). COMPARISON: None. FINDINGS: Bones: Bilateral hip joint osteoarthritic changes are seen with joint space narrowing, subchondral sclerosis and small marginal osteophyte formation. No fractures or dislocations. No evidence of avascular necrosis of femoral head. No gross bony erosive changes. Pelvic ring appears intact. No suspicious bony lesions. Soft tissues: The visualized bowel gas pattern is normal. No suspicious soft tissue calcifications. IMPRESSION: Bilateral hip joint osteoarthritis. No hip fracture or dislocation. No evidence of avascular necrosis. Dictated by: Brandon Sow M.D. on 04/27/2022 at 14:07 Approved by: Brandon Sow M.D. on 04/27/2022 at 14:07
== END ==
PROVIDERS: PCP Internal Medicine; Referring Provider Internal Medicine Rheumatology; Visit Provider Internal Medicine Rheumatology
DX: L40.50 Arthropathic psoriasis, unspecified (principal); M16.0 Bilateral primary osteoarthritis of hip; M25.551 Pain in right hip
CPT/HCPCS: 73130; 73521

== ENCOUNTER → 2022-07-30 15:19 | Outpatient (CLI) | payer MEDICARE, BC, SELFPAY ==
[2020-08-17 14:41] VITALS: BMI 33.9
[2022-07-30 15:48] LABS: Add Manual Diff / Slide Review NO; Basophils Absolute Auto 0 /uL (0-100); Basophils Percent Auto 0.8 % (0-2); Eosinophils Absolute Auto 300 /uL (0-450); Eosinophils Percent Auto 5.9 % (2-4); Hematocrit 37.7 % (41-53); Hemoglobin 12.8 g/dL (13.5-17.5); Lymphocytes Absolute Auto 1400 /uL (1100-4500); Mean Corpuscular Hemoglobin 33.4 PG (26-34); Mean Corpuscular Volume 98.2 fL (80-100); Monocytes Absolute Auto 700 /uL (0-900); Monocytes Percent Auto 12.5 % (3-14); Neutrophils Absolute Auto 3300 /uL (1500-7000); Neutrophils Percent Auto 56.8 % (50-75); Platelet Count 244 X10^3/uL (150-400); Red Blood Cell Count 3.84 X10^6/uL (4.5-5.9); White Blood Cell Count 5.8 X10^3/uL (4.5-11.0)
[2022-07-30 16:05] LABS: Erythrocyte Sedimentation Rate 19 MM/HR (0-15)
[2022-07-30 16:20] LABS: Alanine Aminotransferase 21 IU/L (<50); Albumin 4.1 g/dL (3.5-5.0); Albumin Globulin Ratio 1.7 (1.0-2.8); Alkaline Phosphatase 56 U/L (38-126); Aspartate Aminotransferase 26 IU/L (17-59); BUN Creatinine Ratio 23.5 (6-22); Bilirubin Total 0.1 mg/dL (0.2-1.3); Blood Urea Nitrogen 23 mg/dL (9-20); C-Reactive Protein Quant < 0.5 mg/dL (<1.0); Calcium 8.8 mg/dL (8.4-10.2); Carbon Dioxide 28 mmol/L (22-32); Chloride 103 mmol/L (98-107); Estimated Glomerular Filt Rate > 60 mL/min (>60); Globulin 2.4 g/dL (1.7-4.1); Glucose 94 mg/dL (80-110); HEMOLYSIS < 15 (0-50); Potassium 3.8 mmol/L (3.4-5.1); Sodium 139 mmol/L (137-145); Total Protein 6.5 g/dL (6.3-8.2)
== END ==
PROVIDERS: PCP Internal Medicine; Referring Provider Internal Medicine Rheumatology; Visit Provider Internal Medicine Rheumatology
DX: L40.50 Arthropathic psoriasis, unspecified (principal)
CPT/HCPCS: 36415; 80053; 85025; 85651; 86140

== ENCOUNTER → 2022-11-12 11:07 | Outpatient (CLI) | payer MEDICARE, BC, SELFPAY ==
[2020-08-17 14:41] VITALS: BMI 33.9
[2022-11-12 12:16] LABS: Add Manual Diff / Slide Review NO; Basophils Absolute Auto 0 /uL (0-100); Basophils Percent Auto 0.7 % (0-2); Eosinophils Absolute Auto 300 /uL (0-450); Eosinophils Percent Auto 5.1 % (2-4); Hemoglobin 12.7 g/dL (13.5-17.5); Lymphocytes Absolute Auto 1200 /uL (1100-4500); Mean Corpuscular HGB Conc 34.3 % (30-36); Mean Corpuscular Hemoglobin 33.3 PG (26-34); Mean Corpuscular Volume 97.3 fL (80-100); Monocytes Absolute Auto 600 /uL (0-900); Monocytes Percent Auto 10.1 % (3-14); Neutrophils Absolute Auto 3500 /uL (1500-7000); Neutrophils Percent Auto 62.1 % (50-75); Platelet Count 251 X10^3/uL (150-400); Red Blood Cell Count 3.81 X10^6/uL (4.5-5.9); Red Cell Distribution Width 14.3 % (11.6-14.8); White Blood Cell Count 5.6 X10^3/uL (4.5-11.0)
[2022-11-12 12:34] LABS: Alanine Aminotransferase 22 IU/L (<50); Albumin 4.1 g/dL (3.5-5.0); Albumin Globulin Ratio 1.5 (1.0-2.8); Alkaline Phosphatase 51 U/L (38-126); Aspartate Aminotransferase 26 IU/L (17-59); Bilirubin Total 0.3 mg/dL (0.2-1.3); Blood Urea Nitrogen 19 mg/dL (9-20); C-Reactive Protein Quant < 0.5 mg/dL (<1.0); Calcium 8.7 mg/dL (8.4-10.2); Carbon Dioxide 27 mmol/L (22-32); Chloride 106 mmol/L (98-107); Estimated Glomerular Filt Rate > 60 mL/min (>60); Globulin 2.8 g/dL (1.7-4.1); Glucose 97 mg/dL (80-110); HEMOLYSIS < 15 (0-50); Potassium 3.7 mmol/L (3.4-5.1); Sodium 139 mmol/L (137-145); Total Protein 6.9 g/dL (6.3-8.2)
[2022-11-12 12:39] LABS: Erythrocyte Sedimentation Rate 19 MM/HR (0-15)
[2022-11-12 15:52] LABS: Hepatitis B Surface Antigen NEGATIVE s/c (NEGATIVE)
[2022-11-12 16:07] LABS: Hep C Virus Ab w/Reflex Quant NEGATIVE s/c (NEGATIVE)
[2022-11-13 05:29] LABS: Hepatitis B Surf AB Quant <3.1 mIU/mL (Immunity>9.9)
[2022-11-13 13:26] LABS: Hepatitis B Core Antibody Negative (Negative)
[2022-11-14 09:17] LABS: QuantiFERON Mitogen Value >10.00 IU/mL (.); QuantiFERON TB Gold Plus Negative (Negative)
== END ==
PROVIDERS: PCP Internal Medicine; Referring Provider Internal Medicine Rheumatology; Visit Provider Internal Medicine Rheumatology
DX: L40.50 Arthropathic psoriasis, unspecified (principal); Z11.59 Encounter for screening for other viral diseases
CPT/HCPCS: 36415; 80053; 85025; 85651; 86140; 86480; 86704; 86706; 86803; 87340

== ENCOUNTER 2022-11-15 10:54 | Emergency (ER) | payer MEDICARE, BC, SELFPAY ==
[2020-08-17 14:41] VITALS: BMI 33.9
[2022-11-15 11:08] VITALS: BP 107/57; PULSE 58; RESP 15; TEMP 36.1; O2SAT 97; BMI 33.9
--- NOTE | 2022-11-15 11:10 | DI.RAD.S_ITS ---
PROCEDURE: XR FINGER LT MIN 2V INDICATIONS: cut index finger with tablesaw TECHNIQUE: AP hand, 2 views of the 2nd finger(s) acquired. COMPARISON: None. FINDINGS: Bones: There is absence of the medial aspect of the distal phalanx and distal shaft of the middle phalanx of the 2nd finger consistent with a vertical table saw injury. The joint itself appears intact. No suspicious bony lesions. Soft tissues: Extensive soft tissue laceration. No radiopaque foreign body. IMPRESSION: Table saw injury. Absence of the medial aspect of the distal phalanx and a portion of the medial aspect of the middle phalanx. Dictated by: Alfredito Farias M.D. on 11/15/2022 at 11:44 Approved by: Alfredito Farias M.D. on 11/15/2022 at 11:46
--- NOTE | 2022-11-15 12:11 | ED.UPPEXIN ---
HPI - Extremity Injury (Upper) <Delmar Davis PA-C - Last Filed: 11/15/22 18:00> General Chief Complaint: Extremity Injury, Upper Stated Complaint: cut left hand pointer finger with table saw Time Seen by Provider: 11/15/22 12:07 Source: patient Mode of arrival: Ambulatory History of Present Illness HPI narrative: This is a 72-year-old male presents emergency department due to a left 2nd digit laceration. Patient states he was using a table saw when the piece of wood he was handling was ?snatched away? causing him to cut his finger. Patient denies any numbness of the distal finger. He states he still able to flex and extend the finger. He is not on blood thinners. He reports that moderate pain. No description of any kind of ?spurting ? blood coming from the finger. Patient is right-handed. Related Data Home Medications Medication Instructions Recorded Confirmed celecoxib 200 mg capsule 200 mg PO BID 08/10/20 07/30/22 diphenhydramine HCl 25 mg capsule 25 mg PO BEDTIME 08/10/20 07/30/22 (Benadryl) fluticasone propionate 50 2 spray intranasal DAILY 08/10/20 07/30/22 mcg/actuation nasal spray,suspension (Flonase Allergy Relief) lutein 25 mg-zeaxanthin 5 mg 1 cap PO DAILY 08/10/20 07/30/22 capsule multivitamin 1 tab PO DAILY 08/10/20 07/30/22 omega-3 fatty acids-vitamin E 1 cap PO DAILY 08/10/20 07/30/22 1,000 mg capsule hydroxychloroquine 200 mg tablet 200 mg PO DAILY 07/30/22 07/30/22 (Plaquenil) methotrexate sodium 25 mg/mL 25 mg SUBCUT QWEEK 07/30/22 07/30/22 injection solution Previous Rx's Medication Instructions Recorded aspirin 81 mg tablet,delayed 81 mg PO BID #84 tabs 08/18/20 release carvedilol 25 mg tablet 25 mg PO BID #180 tabs 12/18/21 folic acid 1 mg tablet 1 mg PO DAILY #90 tabs 01/11/22 ezetimibe 10 mg tablet (Zetia) 10 mg PO DAILY #90 tabs 01/24/22 fluoxetine 20 mg capsule 40 mg PO DAILY #180 caps 01/24/22 nifedipine 60 mg tablet,extended 60 mg PO BID #180 tabs 01/24/22 release ketoconazole 2 % shampoo See Rx Instructions .Route 05/21/22 .COMPLEX #240 mL cephalexin 500 mg capsule 500 mg PO QID 7 days #28 caps 11/15/22 hydrocodone 5 mg-acetaminophen 325 1 tab PO BEDTIME PRN pain #10 tabs 11/15/22 mg tablet Allergies Allergy/AdvReac Type Severity Reaction Status Date / Time hydrochlorothiazide Allergy Intermediate Rash Verified 11/15/22 11:07 hydralazine Allergy Unknown doesn't Verified 11/15/22 11:07 remember Ocrdkca-URK-AfN Reductase Allergy Unknown Nothing Verified 11/15/22 11:07 Inhibitor good poss [Swgqwfs-Mxz-Gnf Reductase acute Inhibitor] pancreatitis Review of Systems <Delmar Davis PA-C - Last Filed: 11/15/22 18:00> Review of Systems Narrative: GENERAL: Denies chills, fatigue, malaise, fever, sweats. HEENT: Denies sinus pain, ear pain, sore throat, difficulty swallowing, dizziness. RESPIRATORY: Denies dyspnea, cough, wheezing, hemoptysis, sputum. CARDIOVASCULAR: Denies chest pain, palpitations, orthopnea, edema, GASTROINTESTINAL: Denies nausea, vomiting, abdominal pain, diarrhea, constipation, melena. : Denies dysuria, frequency, incontinence, hematuria, urinary retention. MUSCULOSKELETAL: denies weakness, joint pain, or bony pain SKIN: Left 2nd digit laceration and pain NEUROLOGIC: Denies weakness, headache, numbness, change in speech, confusion, seizures, incoordination. PSYCHIATRIC: No concerning psychosocial issues. 12 point review of systems is negative except for those stated above Patient History <Delmar Davis PA-C - Last Filed: 11/15/22 18:00> Medical History Anemia Arthritis Depression Elevated PSA Essential hypertension Fracture History of colonic polyps Hypertension Mixed hyperlipidemia Non-rheumatic aortic stenosis Obesity Obesity (BMI 30.0-34.9) Obstructive sleep apnea Primary osteoarthritis involving multiple joints Primary osteoarthritis of left knee Psoriasis Psoriatic arthritis RBBB Sleep apnea Venous insufficiency Surgical History H/O hernia repair History of total knee arthroplasty Social History household members: spouse Smoking Status: Never smoker alcohol intake: current Smoking Status: Never smoker alcohol intake frequency: holidays/special occasions only Substance Use Type: does not use Exam <Delmar Davis PA-C - Last Filed: 11/15/22 18:00> Narrative Exam Narrative: GENERAL: Well-developed patient, in mild distress. HEAD: Atraumatic. Normocephalic. EYES: Pupils equal round and reactive. Extraocular motions intact. No scleral icterus. No injection or drainage. ENT: Nose without bleeding, purulent drainage. Throat without erythema, tonsillar hypertrophy or exudate. Airway patent. NECK: Trachea midline. Non tender CARDIOVASCULAR: Regular rate and rhythm without murmurs, gallops, or rubs. RESPIRATORY: Clear to auscultation. Breath sounds equal bilaterally. No wheezes, rales, or rhonchi. GASTROINTESTINAL: Abdomen soft, non-tender, nondistended. EXTREMITIES: No edema or joint tenderness. BACK: Nontender without deformity or crepitance. No flank tenderness. NEURO: AOx3. SKIN: Approximately 7 cm long laceration to the dorsal aspect of the left 2nd digit towards the medial side. There does appear to be a tendon injury to the medial side. Patient maintains flexion and extension at the PIP joints in fingers. No active bleeding no visible bone. Maintains sensation to the distal finger. 2+ capillary refill. Initial Vital Signs Initial Vital Signs: Vital Signs Temperature 97.0 F L 11/15/22 11:08 Pulse Rate 58 L 11/15/22 11:08 Respiratory Rate 15 11/15/22 11:08 Blood Pressure 107/57 L 11/15/22 11:08 Pulse Oximetry 97 11/15/22 11:08 Oxygen Delivery Method Room Air 11/15/22 11:08 <Mandi Golden DO - Last Filed: 11/16/22 19:29> Initial Vital Signs Initial Vital Signs: Vital Signs Temperature 97.0 F L 11/15/22 11:08 Pulse Rate 58 L 11/15/22 11:08 Respiratory Rate 15 11/15/22 11:08 Blood Pressure 107/57 L 11/15/22 11:08 Pulse Oximetry 97 11/15/22 11:08 Oxygen Delivery Method Room Air 11/15/22 11:08 Procedures <Delmar Davis PA-C - Last Filed: 11/15/22 18:00> Laceration Repair Laceration 1: Time of procedure: 13:39 Site: other (Left 2nd digit) Side (If applicable): left Size (cm): 7 Description: linear Depth: involves muscle layer and involves tendon Local Anesthetic: lidocaine 1% (5) Pre-repair: irrigated extensively and cleansed with chlorhexadine Skin layer closed with: nylon Skin layer suture size: 5-0 Number of sutures: 7 Technique: simple, interrupted Course <Delmar Davis PA-C - Last Filed: 11/15/22 18:00> Orders Ordered: Discontinued Medications Hydrocodone Bitart/Acetaminophen (Hydrocodone/Acet 5/325 Tablet) 1 tab PO NOW ONE Stop: 11/15/22 13:34 Last Admin: 11/15/22 13:39 Dose: 1 tab Documented By: JAE Diphtheria/Tetanus/Acell Pertussis (Tet,Diph,Pertuss(Acell),Vac/Pf 0.5 Ml Syringe) 0.5 ml IM .ONCE ONE Stop: 11/15/22 12:31 Last Admin: 11/15/22 12:32 Dose: 0.5 ml Documented By: JAE Cefazolin Sodium 1 gm/ Sodium (Chloride) 100 mls @ 200 mls/hr IV NOW ONE Stop: 11/15/22 12:51 Last Infusion: 11/15/22 13:12 Dose: 0 mls/hr Documented By: Admin: 11/15/22 12:29 Dose: 200 mls/hr Documented By: JAE Lidocaine HCl (Lidocaine 1% 20 Ml) 20 ml INJ INTRA-OP ONE Stop: 11/15/22 12:16 Last Admin: 11/15/22 12:29 Dose: 20 ml Documented By: JAE Tetanus/Diphtheria Toxoids (Tetanus Diphtheria Toxoids 0.5 Ml Vial) 0.5 ml IM .ONCE ONE Stop: 11/15/22 12:16 Last Admin: 11/15/22 12:33 Dose: Not Given Documented By: JAE Consultations Consultation #1: 1300: Discussed case with Dr. Espino, orthopedist. Dr. Espino recommended loosely closing laceration, and having him follow up in his clinic for further evaluation. Vital Signs Vital signs: Vital Signs - 8 hr 11/15/22 11:08 11/15/22 13:58 Temperature 97.0 F L Pulse Rate 58 L 69 Respiratory Rate 15 Blood Pressure 107/57 L 139/67 Pulse Oximetry 97 98 Oxygen Delivery Method Room Air Room Air <Mandi Golden DO - Last Filed: 11/16/22 19:29> Orders Ordered: Discontinued Medications Hydrocodone Bitart/Acetaminophen (Hydrocodone/Acet 5/325 Tablet) 1 tab PO NOW ONE Stop: 11/15/22 13:34 Last Admin: 11/15/22 13:39 Dose: 1 tab Documented By: JAE Diphtheria/Tetanus/Acell Pertussis (Tet,Diph,Pertuss(Acell),Vac/Pf 0.5 Ml Syringe) 0.5 ml IM .ONCE ONE Stop: 11/15/22 12:31 Last Admin: 11/15/22 12:32 Dose: 0.5 ml Documented By: JAE Cefazolin Sodium 1 gm/ Sodium (Chloride) 100 mls @ 200 mls/hr IV NOW ONE Stop: 11/15/22 12:51 Last Infusion: 11/15/22 13:12 Dose: 0 mls/hr Documented By: Admin: 11/15/22 12:29 Dose: 200 mls/hr Documented By: JAE Lidocaine HCl (Lidocaine 1% 20 Ml) 20 ml INJ INTRA-OP ONE Stop: 11/15/22 12:16 Last Admin: 11/15/22 12:29 Dose: 20 ml Documented By: JAE Tetanus/Diphtheria Toxoids (Tetanus Diphtheria Toxoids 0.5 Ml Vial) 0.5 ml IM .ONCE ONE Stop: 11/15/22 12:16 Last Admin: 11/15/22 12:33 Dose: Not Given Documented By: JAE Vital Signs Vital signs: Vital Signs - 8 hr 11/15/22 11:08 11/15/22 13:58 Temperature 97.0 F L Pulse Rate 58 L 69 Respiratory Rate 15 Blood Pressure 107/57 L 139/67 Pulse Oximetry 97 98 Oxygen Delivery Method Room Air Room Air MDM - Extremity Injury (Upper) <Delmar Davis PA-C - Last Filed: 11/15/22 18:00> Imaging Data Extremity x-ray #1: Radiologist's Impression: [address] [address] XRay Report Signed Patient: Jared Smith MR#: [id number] : 1950 Acct:[id number] Age/Sex: 72 / M Date of Service: 11/15/22 Loc: ED Accession Number: [id number] ?? Procedure: XR finger LT min 2V Ordering Provider: Mandi Golden D.O. PROCEDURE:? XR FINGER LT MIN 2V ? INDICATIONS:? cut index finger with tablesaw ? TECHNIQUE:? AP hand, 2 views of the 2nd finger(s) acquired.? ? COMPARISON:? None. ? FINDINGS:? ? Bones:? There is absence of the medial aspect of the distal phalanx and distal shaft of the middle phalanx of the 2nd finger consistent with a vertical table saw injury.? The joint itself appears intact.? No suspicious bony lesions.? ? Soft tissues:? Extensive soft tissue laceration.? No radiopaque foreign body. ? IMPRESSION:? Table saw injury.? Absence of the medial aspect of the distal phalanx and a portion of the medial aspect of the middle phalanx. ? ? Dictated by: Alfredito Farias M.D. on 11/15/2022 at 11:44 ? ? Approved by: Alfredito Farias M.D. on 11/15/2022 at 11:46 ? MDM Narrative Medical decision making narrative: MDM * differential diagnosis includes but not limited to laceration, fracture, tendon injury * Prior records reviewed: Patient was seen here 2 years ago for a left hand injury. Patient is right-handed. X-ray was negative. * My lab interpretation: None obtained * My imgaing interpretation: X-ray shows evidence of to fractures. Open fracture. Joint was not affected. * Clinical Decision Rules/Scores evaluated: None * Independent discussions with: None ED Course: This is a 72-year-old male presents emergency department due to laceration of left 2nd digit. The laceration was extensively irrigated and was noted to have some element of extensor tendon damage the patient appeared able to extend his finger as well as flexes finger.. This was discussed with Dr. Espino, orthopedist, who recommended a loose closure of the injury and have him follow up in his clinic for further evaluation. X-ray shows evidence of fracture although not involving joint. Ancef was given here in the emergency department and patient will discharged with oral antibiotics well. Tetanus was updated. Laceration was closed without complications. Shared Decision Making: Discussed plan with patient who is comfortable with the plan Social Considerations: None Disposition: Discharged to home Discharge Plan Departure Patient Disposition: Home Clinical Impression: Laceration, Finger fracture Activity Restrictions/Additional Instructions: Thank you for coming to the [facility] Emergency Department today. I am glad that we are able to close up the laceration today. We have discussed your case with our on-call orthopedist, Dr. Espino, who recommended follow-up in his clinic within the week for further evaluation. He is information is attached below. Please call him tomorrow if you have not heard from him. Please take oral antibiotics as prescribed. I hope you feel better soon. Prescriptions: New cephalexin 500 mg capsule 500 mg PO QID 7 Days Qty: 28 0RF hydrocodone-acetaminophen 5-325 mg tablet 1 tab PO BEDTIME PRN (Reason: pain) Qty: 10 0RF No Action carvedilol 25 mg tablet 25 mg PO BID Qty: 180 3RF Rx Instructions: With food folic acid 1 mg tablet 1 mg PO DAILY Qty: 90 3RF ketoconazole 2 % shampoo See Rx Instructions .ROUTE .COMPLEX Qty: 240 3RF Dose Instruction: Spread 1 mL on affected area 1 to 2 times weekly as needed. Rx Instructions: Spread 1 mL on affected area 1 to 2 times weekly as needed. methotrexate sodium 25 mg/mL solution 25 mg SUBCUT QWEEK hydroxychloroquine [Plaquenil] 200 mg tablet 200 mg PO DAILY nifedipine 60 mg tablet extended release 60 mg PO BID Qty: 180 3RF ezetimibe [Zetia] 10 mg tablet 10 mg PO DAILY Qty: 90 3RF fluoxetine 20 mg capsule 40 mg PO DAILY Qty: 180 3RF multivitamin Tablet 1 tab PO DAILY celecoxib 200 mg Capsule 200 mg PO BID diphenhydramine HCl [Benadryl] 25 mg Capsule 25 mg PO BEDTIME fluticasone propionate [Flonase Allergy Relief] 50 mcg/actuation [place],Suspension 2 spray INTRANASAL DAILY omega-3 fatty acids-vitamin E 1,000 mg Capsule 1 cap PO DAILY lutein-zeaxanthin 25-5 mg Capsule 1 cap PO DAILY aspirin 81 mg Tablet,Delayed Release (Dr/Ec) 81 mg PO BID Qty: 84 0RF Referrals: Vega Blake MD [Primary Care Provider] - Jonathan Espino MD [Physician] - (Follow-up left 2nd digit laceration, fracture, tendon injury) Stand Alone Forms: Patient Portal/API <Mandi Golden DO - Last Filed: 11/16/22 19:29> Cosign ED Attending Ceciliaature Attestation: I was immediately available in the department for consultation. Documentation has been reviewed. Patient was also seen and evaluated by myself patient clearly has what looks like tendon involvement on the lateral side at the middle interphalangeal joint, I do not appreciate lot of significant bony exposure but patient has a large laceration with obvious loss of bone on x-ray. Patient's motion is fairly appropriate agree with exam above. Area was cleaned patient was given antibiotics, tetanus patient had recently eaten so Dr. Espino will see shortly for treatment.
[2022-11-15] MEDS: LIDOCAINE 1% 20 ML INJ (12:29)
[2022-11-15] MEDS: CEFAZOLIN VIAL 1 GM in SODIUM CHLORIDE 0.9% 100 ML IV (12:29)
[2022-11-15] MEDS: TET,DIPH,PERTUSS(ACELL),VAC/PF 0.5 ML SYRINGE IM (12:32)
[2022-11-15] MEDS: HYDROCODONE/ACET 5/325 TABLET 1 TAB PO (13:39)
--- NOTE | 2022-11-15 13:40 | PC.NURSE ---
Pts wound irrigated and sutured by Lee Davis.
[2022-11-15 13:58] VITALS: BP 139/67; PULSE 69; O2SAT 98
== END 2022-11-15 13:58 | disposition home or self-care (01) ==
PROVIDERS: Emergency Provider Physician Assistant Medical; PCP Internal Medicine
DX: S61.211A Laceration without foreign body of left index finger without damage to nail, initial encounter (principal); S62.631A Displaced fracture of distal phalanx of left index finger, initial encounter for closed fracture; W27.0XXA Contact with workbench tool, initial encounter; Z79.899 Other long term (current) drug therapy; Z23 Encounter for immunization
CPT/HCPCS: 13132; 73140; 90471; 96365; 99284; 90715; J0690

== ENCOUNTER → 2023-04-05 15:20 | Outpatient (CLI) | payer MEDICARE, BC, SELFPAY ==
[2020-08-17 14:41] VITALS: BMI 33.9
[2023-04-05 16:28] LABS: Add Manual Diff / Slide Review NO; Basophils Absolute Auto 100 /uL (0-100); Basophils Percent Auto 0.9 % (0-2); Eosinophils Absolute Auto 200 /uL (0-450); Eosinophils Percent Auto 3.8 % (2-4); Hematocrit 34.9 % (41-53); Hemoglobin 12.3 g/dL (13.5-17.5); Lymphocytes Absolute Auto 1600 /uL (1100-4500); Lymphocytes Percent Auto 24.8 % (25-40); Mean Corpuscular HGB Conc 35.3 % (30-36); Mean Corpuscular Hemoglobin 34.4 PG (26-34); Mean Corpuscular Volume 97.3 fL (80-100); Monocytes Absolute Auto 500 /uL (0-900); Monocytes Percent Auto 8.1 % (3-14); Neutrophils Absolute Auto 3900 /uL (1500-7000); Neutrophils Percent Auto 62.4 % (50-75); Platelet Count 268 X10^3/uL (150-400); Red Blood Cell Count 3.58 X10^6/uL (4.5-5.9); White Blood Cell Count 6.3 X10^3/uL (4.5-11.0)
[2023-04-05 16:43] LABS: Alanine Aminotransferase 22 IU/L (<50); Albumin Globulin Ratio 1.6 (1.0-2.8); Alkaline Phosphatase 48 U/L (38-126); Aspartate Aminotransferase 26 IU/L (17-59); BUN Creatinine Ratio 14.6 (6-22); Bilirubin Total 0.3 mg/dL (0.2-1.3); Blood Urea Nitrogen 24 mg/dL (9-20); C-Reactive Protein Quant < 0.5 mg/dL (<1.0); Calcium 9.3 mg/dL (8.4-10.2); Carbon Dioxide 28 mmol/L (22-32); Chloride 101 mmol/L (98-107); Estimated Glomerular Filt Rate 44 mL/min (>60); Globulin 2.5 g/dL (1.7-4.1); Glucose 116 mg/dL (80-110); HEMOLYSIS < 15 (0-50); Potassium 3.9 mmol/L (3.4-5.1); Sodium 135 mmol/L (137-145); Total Protein 6.5 g/dL (6.3-8.2)
[2023-04-05 18:31] LABS: Erythrocyte Sedimentation Rate 18 MM/HR (0-15)
[2023-04-06 04:11] LABS: Hepatitis B Core AB w/Reflex Negative (Negative); Hepatitis B Surf AB Quant <3.1 mIU/mL (Immunity>9.9)
[2023-04-08 09:36] LABS: HCV AB Non Reactive (Non Reactive)
[2023-04-08 16:17] LABS: Hepatitis B Surface Antigen NEGATIVE s/c (NEGATIVE)
[2023-04-10 04:29] LABS: QuantiFERON Mitogen Value >10.00 IU/mL (.); QuantiFERON Nil Value 0.02 IU/mL (.); QuantiFERON TB Gold Plus Negative (Negative); QuantiFERON TB1 Ag Value 0.03 IU/mL (.); QuantiFERON TB2 Ag Value 0.04 IU/mL (.)
== END ==
PROVIDERS: PCP Internal Medicine; Referring Provider Internal Medicine Rheumatology; Visit Provider Internal Medicine Rheumatology
DX: L40.50 Arthropathic psoriasis, unspecified (principal); Z11.59 Encounter for screening for other viral diseases
CPT/HCPCS: 36415; 80053; 85025; 85651; 86140; 86480; 86704; 86706; 86803; 87340

== ENCOUNTER → 2023-05-13 11:53 | Outpatient (CLI) | payer MEDICARE, BC, SELFPAY ==
[2020-08-17 14:41] VITALS: BMI 33.9
[2023-05-13 13:04] LABS: Alanine Aminotransferase 23 IU/L (<50); Albumin Globulin Ratio 1.3 (1.0-2.8); Alkaline Phosphatase 48 U/L (38-126); Aspartate Aminotransferase 26 IU/L (17-59); Bilirubin Total 0.4 mg/dL (0.2-1.3); Blood Urea Nitrogen 19 mg/dL (9-20); Calcium 9.1 mg/dL (8.4-10.2); Carbon Dioxide 26 mmol/L (22-32); Chloride 103 mmol/L (98-107); Estimated Glomerular Filt Rate > 60 mL/min (>60); Globulin 3.1 g/dL (1.7-4.1); Glucose 100 mg/dL (80-110); HEMOLYSIS < 15 (0-50); Potassium 3.6 mmol/L (3.4-5.1); Sodium 138 mmol/L (137-145); Total Protein 7.1 g/dL (6.3-8.2)
== END ==
PROVIDERS: PCP Internal Medicine; Referring Provider Internal Medicine Rheumatology; Visit Provider Internal Medicine Rheumatology
DX: L40.50 Arthropathic psoriasis, unspecified (principal)
CPT/HCPCS: 36415; 80053

== ENCOUNTER → 2023-06-17 09:59 | Outpatient (CLI) | payer MEDICARE, BC, SELFPAY ==
[2020-08-17 14:41] VITALS: BMI 33.9
[2023-06-17 11:09] LABS: Alanine Aminotransferase 21 IU/L (<50); Albumin 3.8 g/dL (3.5-5.0); Albumin Globulin Ratio 1.5 (1.0-2.8); Alkaline Phosphatase 48 U/L (38-126); Aspartate Aminotransferase 25 IU/L (17-59); BUN Creatinine Ratio 19.6 (6-22); Bilirubin Total 0.4 mg/dL (0.2-1.3); Blood Urea Nitrogen 20 mg/dL (9-20); Calcium 9.6 mg/dL (8.4-10.2); Carbon Dioxide 26 mmol/L (22-32); Chloride 103 mmol/L (98-107); Estimated Glomerular Filt Rate > 60 mL/min (>60); Globulin 2.6 g/dL (1.7-4.1); Glucose 133 mg/dL (80-110); HEMOLYSIS < 15 (0-50); Potassium 3.8 mmol/L (3.4-5.1); Sodium 137 mmol/L (137-145); Total Protein 6.4 g/dL (6.3-8.2)
== END ==
PROVIDERS: PCP Internal Medicine; Referring Provider Internal Medicine Rheumatology; Visit Provider Internal Medicine Rheumatology
DX: L40.50 Arthropathic psoriasis, unspecified (principal); R97.20 Elevated prostate specific antigen [PSA]
CPT/HCPCS: 36415; 80053; 84153

== ENCOUNTER → 2023-08-06 15:18 | Outpatient (CLI) | payer MEDICARE, BC, SELFPAY ==
[2020-08-17 14:41] VITALS: BMI 33.9
[2023-08-06 16:28] LABS: Add Manual Diff / Slide Review NO; Basophils Absolute Auto 0 /uL (0-100); Basophils Percent Auto 0.5 % (0-2); Eosinophils Absolute Auto 400 /uL (0-450); Eosinophils Percent Auto 6.2 % (2-4); Hematocrit 35.6 % (41-53); Hemoglobin 12.3 g/dL (13.5-17.5); Lymphocytes Absolute Auto 1400 /uL (1100-4500); Mean Corpuscular HGB Conc 34.5 % (30-36); Mean Corpuscular Hemoglobin 33.5 PG (26-34); Monocytes Absolute Auto 700 /uL (0-900); Monocytes Percent Auto 10.5 % (3-14); Neutrophils Absolute Auto 4300 /uL (1500-7000); Neutrophils Percent Auto 62.8 % (50-75); Platelet Count 240 X10^3/uL (150-400); Red Blood Cell Count 3.67 X10^6/uL (4.5-5.9); Red Cell Distribution Width 15.1 % (11.6-14.8); White Blood Cell Count 6.9 X10^3/uL (4.5-11.0)
[2023-08-06 16:58] LABS: Erythrocyte Sedimentation Rate 16 MM/HR (0-15)
[2023-08-06 17:09] LABS: Alanine Aminotransferase 21 IU/L (<50); Albumin 3.8 g/dL (3.5-5.0); Albumin Globulin Ratio 1.3 (1.0-2.8); Alkaline Phosphatase 44 U/L (38-126); Aspartate Aminotransferase 28 IU/L (17-59); BUN Creatinine Ratio 24.8 (6-22); Bilirubin Total 0.5 mg/dL (0.2-1.3); Blood Urea Nitrogen 26 mg/dL (9-20); C-Reactive Protein Quant 0.5 mg/dL (<1.0); Calcium 8.9 mg/dL (8.4-10.2); Carbon Dioxide 26 mmol/L (22-32); Chloride 104 mmol/L (98-107); Estimated Glomerular Filt Rate > 60 mL/min (>60); Globulin 2.9 g/dL (1.7-4.1); Glucose 90 mg/dL (80-110); HEMOLYSIS 23 (0-50); Sodium 137 mmol/L (137-145); Total Protein 6.7 g/dL (6.3-8.2)
[2023-08-06 17:16] LABS: Potassium 3.6 mmol/L (3.4-5.1)
== END ==
PROVIDERS: PCP Internal Medicine; Referring Provider Internal Medicine Rheumatology; Visit Provider Internal Medicine Rheumatology
DX: L40.50 Arthropathic psoriasis, unspecified (principal)
CPT/HCPCS: 36415; 80053; 85025; 85651; 86140

== ENCOUNTER → 2023-11-12 14:27 | Outpatient (CLI) | payer MEDICARE, BC, SELFPAY ==
[2020-08-17 14:41] VITALS: BMI 33.9
[2023-11-12 15:04] LABS: Hematocrit 34.2 % (41-53); Mean Corpuscular HGB Conc 35.2 % (30-36); Mean Corpuscular Hemoglobin 34.6 PG (26-34); Mean Corpuscular Volume 98.2 fL (80-100); Platelet Count 232 X10^3/uL (150-400); Red Blood Cell Count 3.49 X10^6/uL (4.5-5.9); Red Cell Distribution Width 14.6 % (11.6-14.8); White Blood Cell Count 6.2 X10^3/uL (4.5-11.0)
[2023-11-12 15:26] LABS: Alanine Aminotransferase 21 IU/L (<50); Albumin 4.1 g/dL (3.5-5.0); Albumin Globulin Ratio 1.7 (1.0-2.8); Alkaline Phosphatase 47 U/L (38-126); Aspartate Aminotransferase 32 IU/L (17-59); BUN Creatinine Ratio 22.7 (6-22); Bilirubin Total 0.4 mg/dL (0.2-1.3); Blood Urea Nitrogen 22 mg/dL (9-20); C-Reactive Protein Quant < 0.5 mg/dL (<1.0); Calcium 8.6 mg/dL (8.4-10.2); Carbon Dioxide 26 mmol/L (22-32); Chloride 106 mmol/L (98-107); Estimated Glomerular Filt Rate > 60 mL/min (>60); Globulin 2.4 g/dL (1.7-4.1); Glucose 112 mg/dL (80-110); HEMOLYSIS < 15 (0-50); Potassium 3.7 mmol/L (3.4-5.1); Sodium 138 mmol/L (137-145); Total Protein 6.5 g/dL (6.3-8.2)
[2023-11-12 16:08] LABS: Erythrocyte Sedimentation Rate 17 MM/HR (0-15)
== END ==
PROVIDERS: PCP Internal Medicine; Referring Provider Internal Medicine Rheumatology; Visit Provider Internal Medicine Rheumatology
DX: L40.50 Arthropathic psoriasis, unspecified (principal)
CPT/HCPCS: 36415; 80053; 85027; 85651; 86140

== ENCOUNTER → 2024-01-28 11:58 | Outpatient (CLI) | payer MEDICARE, BC, SELFPAY ==
[2020-08-17 14:41] VITALS: BMI 33.9
[2024-01-28 13:45] LABS: Alanine Aminotransferase 24 IU/L (<50); Albumin 4.1 g/dL (3.5-5.0); Albumin Globulin Ratio 1.7 (1.0-2.8); Alkaline Phosphatase 52 U/L (38-126); Aspartate Aminotransferase 32 IU/L (17-59); BUN Creatinine Ratio 22.3 (6-22); Bilirubin Total 0.5 mg/dL (0.2-1.3); Blood Urea Nitrogen 21 mg/dL (9-20); Calcium 8.6 mg/dL (8.4-10.2); Carbon Dioxide 26 mmol/L (22-32); Chloride 103 mmol/L (98-107); Estimated Glomerular Filt Rate > 60 mL/min (>60); Globulin 2.4 g/dL (1.7-4.1); Glucose 103 mg/dL (80-110); HEMOLYSIS < 15 (0-50); Potassium 3.9 mmol/L (3.4-5.1); Sodium 136 mmol/L (137-145); Total Protein 6.5 g/dL (6.3-8.2)
== END ==
LOC: LAB 12:00
PROVIDERS: PCP Internal Medicine; Referring Provider Internal Medicine Rheumatology; Visit Provider Internal Medicine Rheumatology
DX: L40.50 Arthropathic psoriasis, unspecified (principal)
CPT/HCPCS: 36415; 80053

== ENCOUNTER → 2024-02-19 10:26 | Outpatient (CLI) | payer MEDICARE, BC, SELFPAY ==
[2020-08-17 14:41] VITALS: BMI 33.9
[2024-02-19 13:00] LABS: TSH w/ Reflex to FT4 1.15 uIU/mL (0.47-4.68)
[2024-02-19 20:20] LABS: Cholesterol 192 mg/dL (140-199); HDL Cholesterol 50 mg/dL (40-60); LDL Cholesterol Calculated 110 mg/dL (<100); Triglycerides 160 mg/dL (35-150)
[2024-02-19 21:40] LABS: Prostate Specific Antigen 4.19 ng/mL (0.10-4.00)
== END ==
PROVIDERS: PCP Internal Medicine; Referring Provider Internal Medicine; Visit Provider Internal Medicine
DX: E78.2 Mixed hyperlipidemia (principal); R97.20 Elevated prostate specific antigen [PSA]
CPT/HCPCS: 36415; 80061; 84153; 84443

== ENCOUNTER → 2024-03-16 08:40 | Outpatient (CLI) | payer MEDICARE, BC, SELFPAY ==
[2020-08-17 14:41] VITALS: BMI 33.9
[2024-03-16 09:37] LABS: Influenza A - CEPHEID Flu A NEGATIVE (NEGATIVE); Influenza B - CEPHEID Flu B NEGATIVE (NEGATIVE); Respiratory Syncytial Virus Negative (Negative)
[2024-03-16 10:02] LABS: COVID-19 CEPHEID 4-PLEX PCR Negative (Negative)
== END ==
PROVIDERS: PCP Internal Medicine; Visit Provider Internal Medicine
DX: J02.9 Acute pharyngitis, unspecified (principal); R05.9 Cough, unspecified; R09.89 Other specified symptoms and signs involving the circulatory and respiratory systems
CPT/HCPCS: 0241U

== ENCOUNTER → 2024-05-11 10:29 | Outpatient (CLI) | payer MEDICARE, BC, SELFPAY ==
[2020-08-17 14:41] VITALS: BMI 33.9
[2024-05-11 10:58] LABS: Add Manual Diff / Slide Review NO; Basophils Absolute Auto 100 /uL (0-100); Basophils Percent Auto 1.4 % (0-2); Eosinophils Absolute Auto 400 /uL (0-450); Eosinophils Percent Auto 7.9 % (2-4); Hematocrit 37.9 % (41-53); Lymphocytes Absolute Auto 1300 /uL (1100-4500); Lymphocytes Percent Auto 25.7 % (25-40); Mean Corpuscular HGB Conc 34.2 % (30-36); Mean Corpuscular Hemoglobin 34.4 PG (26-34); Mean Corpuscular Volume 100.5 fL (80-100); Monocytes Absolute Auto 700 /uL (0-900); Monocytes Percent Auto 14.5 % (3-14); Neutrophils Absolute Auto 2600 /uL (1500-7000); Neutrophils Percent Auto 50.5 % (50-75); Platelet Count 257 X10^3/uL (150-400); Red Blood Cell Count 3.77 X10^6/uL (4.5-5.9); Red Cell Distribution Width 14.6 % (11.6-14.8); White Blood Cell Count 5.1 X10^3/uL (4.5-11.0)
[2024-05-11 11:21] LABS: Alanine Aminotransferase 24 IU/L (<50); Albumin 4.1 g/dL (3.5-5.0); Albumin Globulin Ratio 1.6 (1.0-2.8); Alkaline Phosphatase 44 U/L (38-126); Aspartate Aminotransferase 30 IU/L (17-59); BUN Creatinine Ratio 21.9 (6-22); Bilirubin Total 0.4 mg/dL (0.2-1.3); Blood Urea Nitrogen 23 mg/dL (9-20); C-Reactive Protein Quant < 0.5 mg/dL (<1.0); Calcium 9.2 mg/dL (8.4-10.2); Carbon Dioxide 27 mmol/L (22-32); Chloride 105 mmol/L (98-107); Estimated Glomerular Filt Rate > 60 mL/min (>60); Globulin 2.5 g/dL (1.7-4.1); Glucose 84 mg/dL (80-110); HEMOLYSIS < 15 (0-50); Potassium 4.1 mmol/L (3.4-5.1); Sodium 139 mmol/L (137-145); Total Protein 6.6 g/dL (6.3-8.2)
== END ==
PROVIDERS: PCP Internal Medicine; Referring Provider Internal Medicine Rheumatology; Visit Provider Internal Medicine Rheumatology
DX: L40.50 Arthropathic psoriasis, unspecified (principal)
CPT/HCPCS: 36415; 80053; 85025; 86140

== ENCOUNTER 2024-05-26 10:27 | Day surgery (SDC) | payer MEDICARE, BC, SELFPAY ==
[2020-08-17 14:41] VITALS: BMI 33.9
--- NOTE | 2024-05-26 | PATH_ITS ---
[facility] Accession Number: [id number] No. of containers..01 Tissue . 01 Material submitted: . rectum - RECTAL POLYP . 01 Diagnosis: RECTAL POLYP, BIOPSY: Tubular adenoma. MRV 05/29/2024 1404 Local . 01 Electronically signed: . Sheyla Carlos MD, Pathologist NPI- [id number] . 01 Gross description: . Received in formalin with two patient identifiers and rectal polyp, are two [place] soft tissue fragments 0.2 to 0.3 cm in greatest dimension. Submitted in cassette A1. ([id number]) /ANIA 05/27/2024 1022 Local . 01 Pathologist provided ICD-10: D12.8 . 01 CPT . 383147 Specimen Comment: A courtesy copy of this report has been sent to [phone] Performed at: [address] [facility] [id number] MD Jared Velazquez MD Phone: [phone]
[2024-05-26 11:17] VITALS: BP 149/74; PULSE 67; RESP 16; TEMP 36.1; O2SAT 97
--- NOTE | 2024-05-26 11:53 | P.HP_ITS ---
History of Present Illness History of Present Illness Date Patient Seen: 05/26/24 Time Patient Seen: 11:55 Chief complaint: Screening Colonoscopy Narrative: 74-year-old man here for screening colonoscopy. Last colonoscopy 2015. Personal history of colonic polyps. No family history of colon cancer. No abdominal concerns today. [facility] Medical History History of colonic polyps Anemia Psoriatic arthritis Obesity (BMI 30.0-34.9) Venous insufficiency Non-rheumatic aortic stenosis Obstructive sleep apnea Elevated PSA Primary osteoarthritis involving multiple joints Mixed hyperlipidemia Essential hypertension RBBB Primary osteoarthritis of left knee Arthritis Depression Fracture Hypertension Obesity Psoriasis Sleep apnea Surgical History History of total knee arthroplasty H/O hernia repair Social History household members: spouse Smoking Status: Never smoker alcohol intake: current Meds Home Medications and Allergies Home Medications Medication Instructions Recorded Confirmed Type diphenhydramine HCl 25 mg capsule 25 mg PO BEDTIME 08/10/20 03/16/24 History (Benadryl) lutein 25 mg-zeaxanthin 5 mg 1 cap PO DAILY 08/10/20 03/16/24 History capsule multivitamin 1 tab PO DAILY 08/10/20 03/16/24 History omega-3 fatty acids-vitamin E 1 cap PO DAILY 08/10/20 03/16/24 History 1,000 mg capsule aspirin 81 mg tablet,delayed 81 mg PO BID #84 tabs 08/18/20 05/26/24 Rx release folic acid 1 mg tablet 1 mg PO DAILY #90 tabs 01/11/22 03/16/24 Rx hydroxychloroquine 200 mg tablet 200 mg PO DAILY 07/30/22 03/16/24 History (Plaquenil) methotrexate sodium 2.5 mg tablet 12.5 mg PO .COMPLEX 01/28/23 03/16/24 History celecoxib 200 mg capsule 200 mg PO DAILY 06/17/23 05/26/24 History ketoconazole 2 % shampoo 1 applic topical DAILY PRN skin 09/05/23 03/16/24 Rx irritation/rash #240 mL adalimumab 40 mg/0.4 mL 40 mg SUBCUT Q2W 12/16/23 05/26/24 History subcutaneous pen kit (Humira(CF) Pen) carvedilol 25 mg tablet 25 mg PO BID #180 tabs 01/17/24 05/26/24 Rx ezetimibe 10 mg tablet (Zetia) 10 mg PO DAILY #90 tabs 02/17/24 05/26/24 Rx nifedipine 60 mg tablet,extended 60 mg PO BID #180 tabs 02/17/24 03/16/24 Rx release fluoxetine 20 mg capsule 40 mg (2 x 20 mg) PO DAILY #180 03/11/24 05/26/24 Rx caps azithromycin 250 mg tablet See Rx Instructions PO .COMPLEX #6 03/16/24 03/16/24 Rx tabs sodium,potassium,mag sulfates 17.5 See Rx Instructions PO .COMPLEX 04/15/24 Rx gram-3.13 gram-1.6 gram oral soln #354 mL (Suprep Bowel Prep Kit) adalimumab 40 mg/0.4 mL 40 mg SUBCUT Q2W 05/26/24 05/26/24 History subcutaneous pen kit (Humira(CF) Pen) hydroxychloroquine 200 mg tablet 400 mg PO DAILY 05/26/24 05/26/24 History Allergies Allergy/AdvReac Type Severity Reaction Status Date / Time hydrochlorothiazide Allergy Intermediate Rash Verified 05/26/24 11:02 hydralazine Allergy Unknown doesn't Verified 05/26/24 11:02 remember Nkyynux-SCC-UeN Reductase Allergy Unknown Nothing Verified 05/26/24 11:02 Inhibitor good poss [Ykrnxxr-Wcu-Pjo Reductase acute Inhibitor] pancreatitis Exam Vital Signs (past 8 hours): - 05/26/24 11:17 Temperature 96.9 F L Pulse Rate 67 Respiratory Rate 16 Blood Pressure 149/74 H Pulse Oximetry 97 Oxygen Delivery Method Room Air Oxygen Delivery Method Room Air Narrative Exam Narrative: General adult man alert oriented no acute distress Chest nonlabored respiration Extremities warm well perfused Assessment & Plan Assessment & Plan narrative: The patient requires colorectal screening and colonoscopy is recommended. Technical details were discussed. Risks, benefits, alternatives explained. Risks including but not limited to myocardial infarction, aspiration, bleeding, pain, missed lesion, incomplete examination, need for further radiographic studies, intestinal injury, and need for major abdominal surgery were discussed. All questions were answered to their satisfaction, and they are in agreement with this plan. Time-Based Coding :: [TOTAL MINUTES] spent with patient and on the chart (including review of chart, obtaining history, exam, reviewing outside data, placing orders, documenting exam and treatment plan, and counseling patient) on [DATE].
[2024-05-26 12:24] VITALS: BP 133/77; PULSE 61; RESP 18; TEMP 36.7; O2SAT 96
--- NOTE | 2024-05-26 12:24 | P.OP.COLON_ITS ---
Operative Date/Time/Diagnoses Date of procedure: 05/26/24 Time of procedure: 12:25 Pre-op diagnosis: Personal history of colonic polyps Post-op diagnosis: other (Colonic polyp times) Procedure & Clinicians Study performed: Screening colonoscopy with polypectomy Same procedure as scheduled: Yes Indications: Screening Surgeon: Israel Lyon Procedure Notes Procedure in detail: The history and physical was performed/updated and the patient is ASA class is 2. The procedure was discussed in detail with the patient. Potential risks complications including infection, bleeding, missed diagnosis, perforation, need for surgery, and were explained. Their questions were answered and informed consent was obtained. Patient was brought to the procedure room and placed standard monitoring equipment. The patient's vital signs were monitored continuously throughout the entire procedure. Prior to starting time-out was performed. The patient was placed in the left lateral recumbent position. Procedural sedation was administered by anesthesia. Examination began with a thorough inspection of the perianal area there was no evidence of fissures, fistulae, external hemorrhoids or cutaneous malignancy. The colonoscopy scope was then placed into the anal canal and was advanced to the cecum, which was identified by the ileocecal valve, the appendiceal orifice and the confluence of the taenia. The scope was then slowly withdrawn examining colon thoroughly in all directions, irrigating it of any residual stool. The scope was retroflexed within the rectum The patient tolerated the procedure well. They will be discharged once criteria are met. The prep was of good/excellent quality. The withdrawl time was 10 minutes. FINDINGS * 3 mm polyp in the rectum removed with biopsy forceps. * Diverticulosis of distal colon Specimen(s): other (Rectal polyp) Impression: Colonic polyp x1 Post-procedure Recommendations: High fiber diet Plan for aftercare: Follow up dependent on pathology findings likely 5 years Disposition: same day surgery
[2024-05-26 12:29] VITALS: BP 127/81; PULSE 63; RESP 19; TEMP 36.8; O2SAT 96
== END 2024-05-26 12:50 | disposition home or self-care (01) ==
PROVIDERS: PCP Internal Medicine; Referring Provider Surgery; Visit Provider Surgery
PROC: 0DJD8ZZ Inspection of Lower Intestinal Tract, Via Natural or Artificial Opening Endoscopic (ICD-10-PCS; CPT 45378; principal; 2024-05-26 11:30)
DX: Z12.11 Encounter for screening for malignant neoplasm of colon (principal); Z86.0100 Personal history of colon polyps, unspecified; K57.30 Diverticulosis of large intestine without perforation or abscess without bleeding; D12.8 Benign neoplasm of rectum
CPT/HCPCS: 45380; J2704

== ENCOUNTER 2024-10-30 23:46 | Emergency (ER) | payer MEDICARE, BC, SELFPAY ==
[2020-08-17 14:41] VITALS: BMI 33.9
[2024-10-31 00:12] VITALS: BP 131/63; PULSE 63; RESP 17; TEMP 36.6; O2SAT 100; BMI 33.9
--- NOTE | 2024-10-31 00:28 | ED_ITS ---
HPI - Extremity Problem General Chief complaint: Extremity Problem,Nontraumatic Stated complaint: R leg pain Time Seen by Provider: 10/31/24 00:06 Source: patient Mode of arrival: Ambulatory History of Present Illness HPI Narrative: 74-year-old gentleman history of hypertension presents with right groin and hip pain radiating to R thigh region. He stated initially started about a month ago he was helping move 5000lbs gallon tank but it resolved on its own then but today he was trying to kick the mat to place it underneath the seat furniture when he developed pain and has been unable to sleep due to pain at this time. He did not take anything for the pain. He is able to carefully walk slowly. Other than what is stated 14 point review of system is negative. Related Data Home Medications Medication Instructions Recorded Confirmed diphenhydramine HCl 25 mg capsule 25 mg PO BEDTIME 08/10/20 03/16/24 (Benadryl) lutein 25 mg-zeaxanthin 5 mg 1 cap PO DAILY 08/10/20 03/16/24 capsule multivitamin 1 tab PO DAILY 08/10/20 03/16/24 omega-3 fatty acids-vitamin E 1 cap PO DAILY 08/10/20 03/16/24 1,000 mg capsule hydroxychloroquine 200 mg tablet 200 mg PO DAILY 07/30/22 03/16/24 (Plaquenil) methotrexate sodium 2.5 mg tablet 12.5 mg PO .COMPLEX 01/28/23 03/16/24 celecoxib 200 mg capsule 200 mg PO DAILY 06/17/23 05/26/24 adalimumab 40 mg/0.4 mL 40 mg SUBCUT Q2W 12/16/23 05/26/24 subcutaneous pen kit (Humira(CF) Pen) adalimumab 40 mg/0.4 mL 40 mg SUBCUT Q2W 05/26/24 05/26/24 subcutaneous pen kit (Humira(CF) Pen) hydroxychloroquine 200 mg tablet 400 mg PO DAILY 05/26/24 05/26/24 Previous Rx's Medication Instructions Recorded aspirin 81 mg tablet,delayed 81 mg PO BID #84 tabs 08/18/20 release folic acid 1 mg tablet 1 mg PO DAILY #90 tabs 01/11/22 carvedilol 25 mg tablet 25 mg PO BID #180 tabs 01/17/24 ezetimibe 10 mg tablet (Zetia) 10 mg PO DAILY #90 tabs 02/17/24 nifedipine 60 mg tablet,extended 60 mg PO BID #180 tabs 02/17/24 release fluoxetine 20 mg capsule 40 mg (2 x 20 mg) PO DAILY #180 03/11/24 caps azithromycin 250 mg tablet See Rx Instructions PO .COMPLEX #6 03/16/24 tabs ketoconazole 2 % shampoo 1 applic topical DAILY PRN skin 10/19/24 irritation/rash #240 mL Allergies Allergy/AdvReac Type Severity Reaction Status Date / Time hydrochlorothiazide Allergy Intermediate Rash Verified 05/26/24 11:02 hydralazine Allergy Unknown doesn't Verified 05/26/24 11:02 remember Xeqcrsr-OGO-VmE Reductase Allergy Unknown Nothing Verified 05/26/24 11:02 Inhibitor good poss [Kcpfjzo-Rry-Ccv Reductase acute Inhibitor] pancreatitis Review of Systems Review of Systems ROS Unobtainable: All systems reviewed & are unremarkable except as noted in HPI and below Patient History Medical History History of colonic polyps Anemia Psoriatic arthritis Obesity (BMI 30.0-34.9) Venous insufficiency Non-rheumatic aortic stenosis Obstructive sleep apnea Elevated PSA Primary osteoarthritis involving multiple joints Mixed hyperlipidemia Essential hypertension RBBB Primary osteoarthritis of left knee Arthritis Depression Fracture Hypertension Obesity Psoriasis Sleep apnea Surgical History History of total knee arthroplasty H/O hernia repair Social History household members: spouse Smoking Status: Never smoker alcohol intake: current Smoking Status: Never smoker alcohol intake frequency: holidays/special occasions only Exam Narrative Exam Narrative: GENERAL: [74] year old patient appears stated age. Well-developed patient, in mild distress. HEAD: Atraumatic. Normocephalic. EYES: Pupils equal round and reactive. Extraocular motions intact. No scleral icterus. No injection or drainage. GASTROINTESTINAL: Abdomen soft, non-tender, nondistended. EXTREMITIES: Pelvis stable. Mild TTP of R hip. R thigh hematoma 6x6cm medial proximal thigh BACK: Nontender without deformity or crepitance. No flank tenderness. NEURO: AOx3. Initial Vital Signs Initial Vital Signs: Vital Signs Temperature 97.8 F 10/31/24 00:12 Pulse Rate 63 05/03/25 00:12 Respiratory Rate 17 10/31/24 00:12 Blood Pressure 131/63 10/31/24 00:12 Pulse Oximetry 100 10/31/24 00:12 Oxygen Delivery Method Room Air 10/31/24 00:12 Course Orders Ordered: ED Orders 10/31/24 00:45 CT abdomen pelvis wo con Stat Discontinued Medications Hydrocodone Bitart/Acetaminophen (Hydrocodone/Acet 5/325 Tablet) 1 tab PO NOW ONE Stop: 10/31/24 00:47 Last Admin: 10/31/24 01:03 Dose: 1 tab Documented By: GARRET Ibuprofen (Ibuprofen 400 Mg Tablet) 400 mg PO NOW ONE Stop: 10/31/24 00:47 Last Admin: 10/31/24 01:04 Dose: Not Given Documented By: GARRET Vital Signs Vital signs: Vital Signs - 8 hr 10/31/24 00:12 Temperature 97.8 F Pulse Rate 63 Respiratory Rate 17 Blood Pressure 131/63 Pulse Oximetry 100 Oxygen Delivery Method Room Air MDM - Extremity (Nontraumatic) Imaging Data CT scan - abdomen/pelvis: Radiologist's Impression: [place] [address] CT Scan Report Signed Patient: Jared Smith MR#: [id number] : 1950 Acct:[id number] Age/Sex: 74 / M Date of Service: 10/31/24 Loc: ED Accession Number: [id number] Procedure: CT abdomen pelvis wo con Ordering Provider: Nam Zhong D.O. PROCEDURE: CT ABDOMEN PELVIS WO CON INDICATIONS: R groin pain/ R hip femur pain TECHNIQUE: Axial sections were acquired from the lung bases to the pubic symphysis. Coronal and sagittal reformats were performed. For radiation dose reduction, the following was used: automated exposure control, adjustment of mA and/or kV according to patient size. COMPARISON: None. FINDINGS: Image quality: Diagnostic. Lower Chest: No significant findings. ABDOMEN: Liver: No contour-deforming solid mass. Gallbladder: No radiopaque gallstones or wall thickening. Biliary ducts: No biliary dilation. Pancreas: No ductal dilation. Spleen: Size is within normal limits. Adrenal Glands: No adrenal nodules. Kidneys: Bilateral peripelvic cysts. Bilateral low-density renal cysts. No kidney stones. Stomach and Bowel: Normal colonic caliber, without significant wall thickening. Small duodenal diverticulum. No small bowel obstruction. Normal appendix. Peritoneum: No abnormal intraperitoneal fluid. No free air. Ventral Wall: No hernia. Abdominal Nodes: No enlarged retroperitoneal or mesenteric lymph nodes. Vessels: Aorta and inferior vena cava are normal in size. PELVIS: Pelvic Organs: Prostatomegaly. Bladder: No stone. Pelvic Nodes: Unremarkable. Miscellaneous: No inguinal hernias are seen. Right upper inner thigh heterogeneous region measuring 12.5 x 6.3 x 5.3 cm, (4/58 and 2/173). Measures 67 Hounsfield units. There is adjacent stranding in the fat. This extends near the right pubic symphysis. Bones: No suspicious osseous lesion. Multilevel DDD. IMPRESSION: 1. Large heterogeneous region in the upper inner right thigh measuring 12.5 cm. This could represent an intramuscular hematoma. Especially if the patient has a history of anticoagulation. Intramuscular mass is also a diagnostic consideration. -Recommend clinical correlation. Ultrasound or MRI may be helpful for further evaluation. 2. No free fluid within the abdomen or pelvis. 3. Prostatomegaly. MDM Narrative Medical decision making narrative: Vital signs, nurse triage note, medication list, all previous ER visits including imaging modality all reviewed. Patient given Tylenol and ibuprofen here. Differential diagnosis includes hematoma contusion fracture dislocation arthritis. Case discussed with surgeon on-call recommended no operation at this time but time in the body will reabsorb the blood and dissipate. Advised patient to take Tylenol as needed for pain control and heating pad to the affected area. Discharge Plan Departure Patient Disposition: Home Clinical Impression: Hematoma of right thigh Qualifiers: Encounter type: initial encounter Qualified Code(s): S70.11XA - Contusion of right thigh, initial encounter Instructions: DI for Hematoma (Bruise) Activity Restrictions/Additional Instructions: Return with new or worsening symptoms. Take Tylenol as needed for pain control. Heating pad to affected area. Will take a few weeks for hematoma to resolve on its own. Follow up with PCP as needed if no improvement in symptoms. Prescriptions: No Action Humira(CF) Pen 40 mg/0.4 mL pen injector kit 40 mg SUBCUT Q2W folic acid 1 mg tablet 1 mg PO DAILY Qty: 90 3RF carvedilol 25 mg tablet 25 mg PO BID Qty: 180 3RF Rx Instructions: With food nifedipine 60 mg tablet extended release 60 mg PO BID Qty: 180 3RF ezetimibe [Zetia] 10 mg tablet 10 mg PO DAILY Qty: 90 3RF fluoxetine 20 mg capsule 40 mg PO DAILY Qty: 180 3RF ketoconazole 2 % shampoo 1 applic topical DAILY PRN (Reason: skin irritation/rash) Qty: 240 3RF Rx Instructions: use it on groin, chest, and scalp daily as needed. hydroxychloroquine [Plaquenil] 200 mg tablet 200 mg PO DAILY methotrexate sodium 2.5 mg tablet 12.5 mg PO .COMPLEX Rx Instructions: 12.5 mg orally 5 tablets bid once weekly; azithromycin 250 mg tablet See Rx Instructions PO .COMPLEX Qty: 6 0RF Rx Instructions: For 250 mg dose pack: take 500 mg today (day 1), then 250 mg for 4 days (days 2-5) PO multivitamin Tablet 1 tab PO DAILY diphenhydramine HCl [Benadryl] 25 mg Capsule 25 mg PO BEDTIME omega-3 fatty acids-vitamin E 1,000 mg Capsule 1 cap PO DAILY lutein-zeaxanthin 25-5 mg Capsule 1 cap PO DAILY aspirin 81 mg Tablet,Delayed Release (Dr/Ec) 81 mg PO BID Qty: 84 0RF celecoxib 200 mg capsule 200 mg PO DAILY hydroxychloroquine 200 mg tablet 400 mg PO DAILY Humira(CF) Pen 40 mg/0.4 mL pen injector kit 40 mg SUBCUT Q2W Referrals: Vega Blake MD [Primary Care Provider] - Stand Alone Forms: Patient Portal/API/Survey
--- NOTE | 2024-10-31 00:45 | DI.CT.S_ITS ---
PROCEDURE: CT ABDOMEN PELVIS WO CON INDICATIONS: R groin pain/ R hip femur pain TECHNIQUE: Axial sections were acquired from the lung bases to the pubic symphysis. Coronal and sagittal reformats were performed. For radiation dose reduction, the following was used: automated exposure control, adjustment of mA and/or kV according to patient size. COMPARISON: None. FINDINGS: Image quality: Diagnostic. Lower Chest: No significant findings. ABDOMEN: Liver: No contour-deforming solid mass. Gallbladder: No radiopaque gallstones or wall thickening. Biliary ducts: No biliary dilation. Pancreas: No ductal dilation. Spleen: Size is within normal limits. Adrenal Glands: No adrenal nodules. Kidneys: Bilateral peripelvic cysts. Bilateral low-density renal cysts. No kidney stones. Stomach and Bowel: Normal colonic caliber, without significant wall thickening. Small duodenal diverticulum. No small bowel obstruction. Normal appendix. Peritoneum: No abnormal intraperitoneal fluid. No free air. Ventral Wall: No hernia. Abdominal Nodes: No enlarged retroperitoneal or mesenteric lymph nodes. Vessels: Aorta and inferior vena cava are normal in size. PELVIS: Pelvic Organs: Prostatomegaly. Bladder: No stone. Pelvic Nodes: Unremarkable. Miscellaneous: No inguinal hernias are seen. Right upper inner thigh heterogeneous region measuring 12.5 x 6.3 x 5.3 cm, (4/58 and 2/173). Measures 67 Hounsfield units. There is adjacent stranding in the fat. This extends near the right pubic symphysis. Bones: No suspicious osseous lesion. Multilevel DDD. IMPRESSION: 1. Large heterogeneous region in the upper inner right thigh measuring 12.5 cm. This could represent an intramuscular hematoma. Especially if the patient has a history of anticoagulation. Intramuscular mass is also a diagnostic consideration. -Recommend clinical correlation. Ultrasound or MRI may be helpful for further evaluation. 2. No free fluid within the abdomen or pelvis. 3. Prostatomegaly. Dictated by: Terence Smith M.D. on 10/31/2024 at 1:53 Approved by: Terence Smith M.D. on 10/31/2024 at 2:10
[2024-10-31] MEDS: HYDROCODONE/ACET 5/325 TABLET 1 TAB PO (01:03)
[2024-10-31 02:46] VITALS: BP 120/66; PULSE 61; RESP 20; O2SAT 96
== END 2024-10-31 02:46 | disposition home or self-care (01) ==
PROVIDERS: Emergency Provider Family Medicine; PCP Internal Medicine
DX: S70.11XA Contusion of right thigh, initial encounter (principal); X58.XXXA Exposure to other specified factors, initial encounter
CPT/HCPCS: 74176; 99283; 99284

== ENCOUNTER → 2024-11-30 11:31 | Outpatient (CLI) | payer MEDICARE, BC, SELFPAY ==
[2020-08-17 14:41] VITALS: BMI 33.9
[2024-11-30 11:54] LABS: Add Manual Diff / Slide Review NO; Basophils Absolute Auto 100 /uL (0-100); Eosinophils Absolute Auto 500 /uL (0-450); Eosinophils Percent Auto 9.4 % (2-4); Hematocrit 35.8 % (41-53); Hemoglobin 12.2 g/dL (13.5-17.5); Lymphocytes Absolute Auto 1400 /uL (1100-4500); Lymphocytes Percent Auto 25.9 % (25-40); Mean Corpuscular Hemoglobin 33.9 PG (26-34); Mean Corpuscular Volume 99.6 fL (80-100); Monocytes Absolute Auto 800 /uL (0-900); Monocytes Percent Auto 15.3 % (3-14); Neutrophils Absolute Auto 2600 /uL (1500-7000); Neutrophils Percent Auto 48.4 % (50-75); Platelet Count 258 X10^3/uL (150-400); Red Blood Cell Count 3.59 X10^6/uL (4.5-5.9); Red Cell Distribution Width 15.3 % (11.6-14.8); White Blood Cell Count 5.4 X10^3/uL (4.5-11.0)
[2024-11-30 12:16] LABS: Alanine Aminotransferase 23 IU/L (<50); Albumin 4.2 g/dL (3.5-5.0); Albumin Globulin Ratio 1.7 (1.0-2.8); Alkaline Phosphatase 47 U/L (38-126); Aspartate Aminotransferase 31 IU/L (17-59); BUN Creatinine Ratio 18.6 (6-22); Bilirubin Total 0.5 mg/dL (0.2-1.3); Blood Urea Nitrogen 19 mg/dL (9-20); C-Reactive Protein Quant < 0.5 mg/dL (<1.0); Calcium 8.8 mg/dL (8.4-10.2); Carbon Dioxide 25 mmol/L (22-32); Chloride 105 mmol/L (98-107); Estimated Glomerular Filt Rate > 60 mL/min (>60); Globulin 2.5 g/dL (1.7-4.1); Glucose 105 mg/dL (70-99); HEMOLYSIS < 15 (0-50); Potassium 3.4 mmol/L (3.4-5.1); Sodium 137 mmol/L (137-145); Total Protein 6.7 g/dL (6.3-8.2)
[2024-11-30 12:29] LABS: Erythrocyte Sedimentation Rate 25 MM/HR (0-15)
== END ==
PROVIDERS: PCP Internal Medicine; Referring Provider Internal Medicine Rheumatology; Visit Provider Internal Medicine Rheumatology
DX: L40.50 Arthropathic psoriasis, unspecified (principal)
CPT/HCPCS: 36415; 80053; 85025; 85651; 86140

== ENCOUNTER → 2025-05-25 13:51 | Outpatient (CLI) | payer MEDICARE, BC, SELFPAY ==
[2020-08-17 14:41] VITALS: BMI 33.9
--- NOTE | 2025-05-25 13:53 | DI.RAD.S_ITS ---
PROCEDURE: XR DEXA AXIAL SKELETON INDICATIONS: Arthropathic psoriasis, unspecified COMPARISON: None. FINDINGS: Lumbar Spine: Bone mineral density 1.177 g/cm2, T score 1.2, normal. Left Femoral Neck: Bone mineral density 0.617 g/cm2, T score -2.1. Left Hip: Bone mineral density 0.897 g/cm2, T score -0.4,. Fracture Risk Calculation (when applicable): 10-year fracture risk of a major osteoporotic fracture 12 percent and of a hip fracture 4.4 percent. (T score greater or equal to -1.0 to: NORMAL) (T score from -1.1 to -2.4: OSTEOPENIA) (T score less than or equal to -2.5: OSTEOPOROSIS) IMPRESSION: Osteopenia by femoral neck measurement Follow-up guidelines as follows: Osteoporosis: Consider a repeat DEXA and Vertebral Fracture Assessment (VFA) exam in 2 years or sooner if medically necessary, to reassess this patient's status. Osteopenia: Consider a repeat DEXA in 2-3 years to reassess this patient's status, or if there is a new clinical indication. Normal: Consider a repeat DEXA in 5 years or sooner, or if there is a new clinical indication. All treatment decisions require clinical judgment and consideration of individual patient factors, including patient preferences, comorbidities, previous drug use, risk factors not captured in the FRAX model (e.g., frailty, falls, vitamin D deficiency, increased bone turnover, interval significant decline in bone density ) and possible under- or over-estimation of fracture risk by FRAX. In addition, the NOF Guide recommends that FDA-approved medical therapies be considered in postmenopausal women and men age >= 50 years with a: * Hip or vertebral (clinical or morphometric) fracture * T-score of <=-2.5 at the spine or hip * Ten-year fracture probability by FRAX of >= 3% for hip fracture or >=20% for major osteoporotic fracture. Dictated by: Hero Medrano M.D. on 05/25/2025 at 14:55 Approved by: Hero Medrano M.D. on 05/25/2025 at 14:57
[2025-05-25 15:04] LABS: Add Manual Diff / Slide Review NO; Hematocrit 36.4 % (41-53); Hemoglobin 12.5 g/dL (13.5-17.5); Lymphocytes Absolute Auto 1500 /uL (1100-4500); Mean Corpuscular HGB Conc 34.2 % (30-36); Mean Corpuscular Hemoglobin 34.1 PG (26-34); Mean Corpuscular Volume 99.4 fL (80-100); Platelet Count 226 X10^3/uL (150-400)
[2025-05-25 15:25] LABS: Alanine Aminotransferase 18 IU/L (<50); Albumin 4.0 g/dL (3.5-5.0); Albumin Globulin Ratio 1.6 (1.0-2.8); Alkaline Phosphatase 78 U/L (38-126); Blood Urea Nitrogen 20 mg/dL (9-20); Calcium 8.7 mg/dL (8.4-10.2); Carbon Dioxide 24 mmol/L (22-32); Chloride 106 mmol/L (98-107); Estimated Glomerular Filt Rate > 60 mL/min (>60); Globulin 2.5 g/dL (1.7-4.1); Glucose 96 mg/dL (70-99); HEMOLYSIS < 15 (0-50); Potassium 3.9 mmol/L (3.4-5.1); Sodium 139 mmol/L (137-145); Total Protein 6.5 g/dL (6.3-8.2)
== END ==
PROVIDERS: PCP Internal Medicine; Referring Provider Internal Medicine; Visit Provider Internal Medicine Rheumatology
DX: M81.8 Other osteoporosis without current pathological fracture (principal); L40.50 Arthropathic psoriasis, unspecified
CPT/HCPCS: 36415; 77080; 80053; 85025; 85651; 86140

== ENCOUNTER → 2025-06-08 15:31 | Outpatient (CLI) | payer MEDICARE, BC, SELFPAY ==
[2020-08-17 14:41] VITALS: BMI 33.9
[2025-06-08 17:25] LABS: Free T4, Direct Thyroxine 0.97 ng/dL (0.78-2.19)
[2025-06-08 17:40] LABS: Thyroid Stimulating Hormone 0.809 uIU/mL (0.47-4.68)
[2025-06-08 18:54] LABS: Vitamin D 25 Hydroxy (D3) 27.1 ng/mL (30.0-100.0)
== END ==
PROVIDERS: PCP Internal Medicine; Referring Provider Internal Medicine Rheumatology; Visit Provider Internal Medicine Rheumatology
DX: M81.8 Other osteoporosis without current pathological fracture (principal)
CPT/HCPCS: 36415; 82306; 82523; 83970; 84155; 84165; 84439; 84443